=== PATIENT | male | born 1990 | race Caucasian/White ===

== ENCOUNTER 2018-04-16 16:28 | Emergency (ER) | payer SELFPAY ==
[2018-04-16] MEDS ORDERED: Azithromycin 250 MG Tab PO ONE (16:55)
[2018-04-16] MEDS ORDERED: cefTRIAXone 500 MG in Lidocaine 1% 1 ML IM ONE (16:55)
--- NOTE | 2018-04-16 17:00 | EDM.PDOC ---
ED HPI GENERAL MEDICAL PROBLEM - General Chief Complaint: Genitourinary Problem Stated Complaint: POSSIBLE STD Time Seen by Provider: 04/16/18 16:49 Source of Information: Reports: Patient History Limitations: Reports: No Limitations - History of Present Illness INITIAL COMMENTS - FREE TEXT/NARRATIVE: History of present illness: []Patient has had chlamydia in the past and has been reexpose somebody with documented chlamydia. He states he has tingling and burning in his penis after he urinates. Review of systems: As per history of present illness and below otherwise all systems reviewed and negative. Past medical history: As per history of present illness and as reviewed below otherwise noncontributory. Surgical history: As per history of present illness and as reviewed below otherwise noncontributory. Social history: No reported history of drug or alcohol abuse. Family history: As per history of present illness and as reviewed below otherwise noncontributory. Physical exam: General: Well developed, well nourished in NAD HEENT: Atraumatic, normocephalic, pupils reactive, negative for conjunctival pallor or scleral icterus, mucous membranes moist, throat clear, neck supple, nontender, trachea midline. Lungs: Clear to auscultation, breath sounds equal bilaterally, chest nontender. Heart: S1S2, regular, negative for clicks, rubs, or JVD. Abdomen: NABS, Soft, nondistended, nontender. Negative for masses or hepatosplenomegaly. Negative for costovertebral tenderness. Pelvis: Stable nontender. Genitourinary: Deferred. Rectal: Deferred. Extremities: Atraumatic, negative for cords or calf pain. Neurovascular unremarkable. Neuro: Awake, alert, oriented. Cranial nerves II through XII unremarkable. Cerebellum unremarkable. Motor and sensory unremarkable throughout. Exam nonfocal. Skin:warm and dry Diagnostics: None Therapeutics: Ceftriaxone/Zithromax given in the ED ED Course: Remarkable Impression: Suspected STD infection Prescriptions: None Plan: Follow-up with primary care Definitive disposition and diagnosis as appropriate pending reevaluation and review of above. - Related Data Allergies Allergy/AdvReac Type Severity Reaction Status Date / Time No Known Allergies Allergy Verified 04/16/18 16:50 Home Meds: Home Meds . [No Known Home Meds] 04/16/18 [History] ED ROS GENERAL - Review of Systems Review Of Systems: ROS reveals no pertinent complaints other than HPI. ED EXAM, RENAL/ - Physical Exam Exam: See Below (History of present illness) Course - Vital Signs Last Recorded V/S: Last Vital Signs Temp 97.3 F 04/16/18 16:50 Pulse 89 04/16/18 16:50 Resp 16 04/16/18 16:50 BP 166/137 H 04/16/18 16:50 Pulse Ox 99 04/16/18 16:50 - Orders/Labs/Meds Meds: Medications Discontinued Medications Generic Name Dose Route Start Last Admin Trade Name Dima PRN Reason Stop Dose Admin Azithromycin 1,000 mg 04/16/18 16:55 04/16/18 17:03 Zithromax PO 04/16/18 16:56 1,000 mg Q24H ONE Administration Ceftriaxone Sodium 500 mg/ 1 mls @ 1 mls/sec 04/16/18 16:55 04/16/18 17:04 Lidocaine HCl IM 04/16/18 16:56 1 mls/sec ONETIME ONE Administration Departure - Departure Time of Disposition: 17:08 Disposition: Home, Self-Care 01 Condition: Good Clinical Impression: STD (male) - Discharge Information *PRESCRIPTION DRUG MONITORING PROGRAM REVIEWED*: No *COPY OF PRESCRIPTION DRUG MONITORING REPORT IN PATIENT MICHELLE: No Referrals: PCP,None [Primary Care Provider] - Forms: ED Department Discharge Additional Instructions: The following information is given to patients seen in the emergency department who are being discharged to home. This information is to outline your options for follow-up care. We provide all patients seen in our emergency department with a follow-up referral. The need for follow-up, as well as the timing and circumstances, are variable depending upon the specifics of your emergency department visit. If you don't have a primary care physician on staff, we will provide you with a referral. We always advise you to contact your personal physician following an emergency department visit to inform them of the circumstance of the visit and for follow-up with them and/or the need for any referrals to a consulting specialist. The emergency department will also refer you to a specialist when appropriate. This referral assures that you have the opportunity for follow-up care with a specialist. All of these measure are taken in an effort to provide you with optimal care, which includes your follow-up. Under all circumstances we always encourage you to contact your private physician who remains a resource for coordinating your care. When calling for follow-up care, please make the office aware that this follow-up is from your recent emergency room visit. If for any reason you are refused follow-up, please contact the [facility] Emergency Department at and asked to speak to the emergency department charge nurse. [facility] [place] [id number]
== END 2018-04-16 17:30 | disposition home or self-care (01) ==
LOC: MW.ED 16:28
DX: A64 Unspecified sexually transmitted disease (principal)
CPT/HCPCS: 96372; 99283; A9270; J0696; 99282

== ENCOUNTER 2018-05-11 08:09 | Emergency (ER) | payer SELFPAY ==
--- NOTE | 2018-05-11 08:37 | EDM.PDOC ---
ED HPI GENERAL MEDICAL PROBLEM - General Chief Complaint: Abdominal Pain Stated Complaint: ABDOMINAL PAIN Time Seen by Provider: 05/11/18 08:10 Source of Information: Reports: Patient History Limitations: Reports: No Limitations - History of Present Illness INITIAL COMMENTS - FREE TEXT/NARRATIVE: History of present illness: []Patient had 4-5 days of epigastric pain that is nonradiating. He states he's been drinking more alcohol than normal denies any vomiting, diarrhea, fevers, chills or blood in his stools. Review of systems: As per history of present illness and below otherwise all systems reviewed and negative. Past medical history: As per history of present illness and as reviewed below otherwise noncontributory. Surgical history: As per history of present illness and as reviewed below otherwise noncontributory. Social history: No reported history of drug or alcohol abuse. Family history: As per history of present illness and as reviewed below otherwise noncontributory. Physical exam: General: Well developed, well nourished in NAD HEENT: Atraumatic, normocephalic, pupils reactive, negative for conjunctival pallor or scleral icterus, mucous membranes moist, throat clear, neck supple, nontender, trachea midline. Lungs: Clear to auscultation, breath sounds equal bilaterally, chest nontender. Heart: S1S2, regular, negative for clicks, rubs, or JVD. Abdomen: NABS, Soft, nondistended, nontender. Negative for masses or hepatosplenomegaly. Negative for costovertebral tenderness. Pelvis: Stable nontender. Genitourinary: Deferred. Rectal: Deferred. Extremities: Atraumatic, negative for cords or calf pain. Neurovascular unremarkable. Neuro: Awake, alert, oriented. Cranial nerves II through XII unremarkable. Cerebellum unremarkable. Motor and sensory unremarkable throughout. Exam nonfocal. Skin:warm and dry Diagnostics: CBC, chemistry, lipase, H. pylori Therapeutics: Pepcid, IV hydration ED Course: Unremarkable Impression: gastritis Prescriptions: Prilosec 2 weeks Plan: Take meds as directed, follow up with your primary care physician, return to ER if symptoms worsen or change. Definitive disposition and diagnosis as appropriate pending reevaluation and review of above. Abdomen Pain Score (Numeric/FACES): 8 - Related Data Allergies Allergy/AdvReac Type Severity Reaction Status Date / Time No Known Allergies Allergy Verified 04/16/18 16:50 Home Meds: Home Meds Albuterol Sulfate [Albuterol Sulfate Hfa] 1 puff INH ASDIRECTED 05/11/18 [ History] Past Medical History - Past Health History Medical/Surgical History: Denies Medical/Surgical History - Infectious Disease History Infectious Disease History: Reports: None Social & Family History - Family History Family Medical History: Noncontributory - Caffeine Use Caffeine Use: Reports: Coffee ED ROS GENERAL - Review of Systems Review Of Systems: ROS reveals no pertinent complaints other than HPI. ED EXAM, GI/ABD - Physical Exam Exam: See Below (See history of present illness) Course - Vital Signs Last Recorded V/S: Last Vital Signs Temp 97.4 F 05/11/18 08:28 Pulse 64 05/11/18 08:28 Resp 16 05/11/18 08:28 BP 164/84 H 05/11/18 08:28 Pulse Ox 94 L 05/11/18 08:28 - Orders/Labs/Meds Orders: Active Orders 24 hr Category Date Time Status Sodium Chloride 0.9% [Normal Saline] 1,000 ml Med 05/11/18 08:42 Active IV .Bolus Sodium Chloride 0.9% [Saline Flush] Med 05/11/18 08:42 Active 10 ml FLUSH ASDIRECTED PRN Sodium Chloride 0.9% [Saline Flush] Med 05/11/18 08:42 Active 2.5 ml FLUSH ASDIRECTED PRN Saline Lock Insert [OM.PC] Stat Oth 05/11/18 08:42 Ordered Medication Orders Sodium Chloride (Normal Saline) 1,000 mls @ 999 mls/hr IV .Bolus ONE Stop: 05/11/18 09:42 Last Admin: 05/11/18 08:55 Dose: 999 mls/hr Sodium Chloride (Saline Flush) 10 ml FLUSH ASDIRECTED PRN PRN Reason: Keep Vein Open Sodium Chloride (Saline Flush) 2.5 ml FLUSH ASDIRECTED PRN PRN Reason: Keep Vein Open Labs: Laboratory Tests 05/11/18 05/11/18 05/11/18 Range/Units 08:50 08:50 08:50 WBC 9.38 (4.0-11.0) K/uL RBC 5.23 (4.50-5.90) M/uL Hgb 14.1 (13.0-17.0) g/dL Hct 41.9 (38.0-50.0) % MCV 80.1 (80.0-98.0) fL MCH 27.0 (27.0-32.0) pg MCHC 33.7 (31.0-37.0) g/dL RDW Std Deviation 43.7 (28.0-62.0) fl RDW Coeff of Zach 15 (11.0-15.0) % Plt Count 213 (150-400) K/uL MPV 9.90 (7.40-12.00) fL Neut % (Auto) 65.7 (48.0-80.0) % Lymph % (Auto) 24.5 (16.0-40.0) % [place] % (Auto) 9.6 (0.0-15.0) % Eos % (Auto) 0.1 (0.0-7.0) % Baso % (Auto) 0.1 (0.0-1.5) % Neut # (Auto) 6.2 H (1.4-5.7) K/uL Lymph # (Auto) 2.3 (0.6-2.4) K/uL [place] # (Auto) 0.9 H (0.0-0.8) K/uL Eos # (Auto) 0.0 (0.0-0.7) K/uL Baso # (Auto) 0.0 (0.0-0.1) K/uL Nucleated RBC % 0.0 /100WBC Nucleated RBCs # 0 K/uL Sodium 138 (136-148) mmol/L Potassium 3.8 (3.5-5.1) mmol/L Chloride 100 (98-107) mmol/L Carbon Dioxide 28.1 (21.0-32.0) mmol/L BUN 12 (7.0-18.0) mg/dL Creatinine 1.1 (0.8-1.3) mg/dL Est Cr Clr Drug Dosing 115.20 mL/min Estimated GFR (MDRD) > 60.0 ml/min Glucose 110 H (74-106) mg/dL Calcium 9.1 (8.5-10.1) mg/dL Total Bilirubin 0.4 (0.2-1.0) mg/dL AST 61 H (15-37) IU/L ALT 61 (14-63) IU/L Alkaline Phosphatase 49 (46-116) U/L Total Protein 8.4 H (6.4-8.2) g/dL Albumin 4.2 (3.4-5.0) g/dL Globulin 4.2 H (2.6-4.0) g/dL Albumin/Globulin Ratio 1.0 (0.9-1.6) H. pylori IgG Antibody NEGATIVE (NEG) Meds: Medications Generic Name Dose Route Start Last Admin Trade Name Freq PRN Reason Stop Dose Admin Sodium Chloride 1,000 mls @ 999 mls/hr 05/11/18 08:42 05/11/18 08:55 Normal Saline IV 05/11/18 09:42 999 mls/hr .Bolus ONE Administration Sodium Chloride 10 ml 05/11/18 08:42 Saline Flush FLUSH ASDIRECTED PRN Keep Vein Open Sodium Chloride 2.5 ml 05/11/18 08:42 Saline Flush FLUSH ASDIRECTED PRN Keep Vein Open Discontinued Medications Generic Name Dose Route Start Last Admin Trade Name Freq PRN Reason Stop Dose Admin Famotidine 20 mg 05/11/18 08:42 05/11/18 08:55 Pepcid IVPUSH 05/11/18 08:43 20 mg ONETIME ONE Administration Ondansetron HCl 4 mg 05/11/18 08:42 05/11/18 08:55 Zofran IVPUSH 05/11/18 08:43 4 mg ONETIME ONE Administration Departure - Departure Time of Disposition: 09:42 Disposition: Home, Self-Care 01 Condition: Good Clinical Impression: Gastritis Qualifiers: Gastritis type: unspecified gastritis Chronicity: acute Gastritis bleeding: without bleeding Qualified Code(s): K29.00 - Acute gastritis without bleeding - Discharge Information *PRESCRIPTION DRUG MONITORING PROGRAM REVIEWED*: No *COPY OF PRESCRIPTION DRUG MONITORING REPORT IN PATIENT MICHELLE: No Referrals: PCP,None [Primary Care Provider] - Forms: ED Department Discharge Additional Instructions: The following information is given to patients seen in the emergency department who are being discharged to home. This information is to outline your options for follow-up care. We provide all patients seen in our emergency department with a follow-up referral. The need for follow-up, as well as the timing and circumstances, are variable depending upon the specifics of your emergency department visit. If you don't have a primary care physician on staff, we will provide you with a referral. We always advise you to contact your personal physician following an emergency department visit to inform them of the circumstance of the visit and for follow-up with them and/or the need for any referrals to a consulting specialist. The emergency department will also refer you to a specialist when appropriate. This referral assures that you have the opportunity for follow-up care with a specialist. All of these measure are taken in an effort to provide you with optimal care, which includes your follow-up. Under all circumstances we always encourage you to contact your private physician who remains a resource for coordinating your care. When calling for follow-up care, please make the office aware that this follow-up is from your recent emergency room visit. If for any reason you are refused follow-up, please contact the [facility] Emergency Department at and asked to speak to the emergency department charge nurse. \ Take Prilosec [id number] twice a day for 2 weeks, follow up with primary care return if symptoms worsen or change. [facility] [address] [place] [address] - My Orders Last 24 Hours: My Active Orders 05/11/18 08:42 Sodium Chloride 0.9% [Normal Saline] 1,000 ml IV .Bolus Sodium Chloride 0.9% [Saline Flush] 10 ml FLUSH ASDIRECTED PRN Sodium Chloride 0.9% [Saline Flush] 2.5 ml FLUSH ASDIRECTED PRN Saline Lock Insert [OM.PC] Stat - Assessment/Plan Last 24 Hours: My Active Orders 05/11/18 08:42 Sodium Chloride 0.9% [Normal Saline] 1,000 ml IV .Bolus Sodium Chloride 0.9% [Saline Flush] 10 ml FLUSH ASDIRECTED PRN Sodium Chloride 0.9% [Saline Flush] 2.5 ml FLUSH ASDIRECTED PRN Saline Lock Insert [OM.PC] Stat
[2018-05-11] MEDS ORDERED: Sodium Chloride 0.9% 2.5 ML Syringe FLUSH PRN (08:42)
[2018-05-11] MEDS ORDERED: Sodium Chloride 0.9% 1,000 ML IV ONE (08:42)
[2018-05-11] MEDS ORDERED: Sodium Chloride 0.9% 10 ML Syringe FLUSH PRN (08:42)
[2018-05-11] MEDS ORDERED: Ondansetron 4 MG/2 ML SDV IVPUSH ONE (08:42)
[2018-05-11] MEDS ORDERED: Famotidine 20 MG/2 ML SDV IVPUSH ONE (08:42)
[2018-05-11 09:31] LABS: CHLORIDE,CL 100 mmol/L (98-107); SODIUM,NA 138 mmol/L (136-148)
== END 2018-05-11 09:44 | disposition home or self-care (01) ==
LOC: MW.ED 08:09
DX: K29.00 Acute gastritis without bleeding (principal)
CPT/HCPCS: 36415; 80053; 85025; 86677; 96361; 96374; 96375; 99284; J2405; J3490; J7040; 99283

== ENCOUNTER 2020-10-21 03:49 | Emergency (ER) | payer SELFPAY ==
--- NOTE | 2020-10-21 04:03 | EDM.PDOC ---
ED HPI GENERAL MEDICAL PROBLEM - General Chief Complaint: General Stated Complaint: MEDICAL CLEARANCE Time Seen by Provider: 10/21/20 04:01 - History of Present Illness INITIAL COMMENTS - FREE TEXT/NARRATIVE: HISTORY AND PHYSICAL: History of present illness: This is a 30-year-old gentleman who was brought in today by law enforcement for medical clearance. Patient reports he was drinking alcohol tonight. Patient denies any pain or discomfort anywhere. Patient has any recent fevers, shakes, chills, nausea, vomiting, diarrhea, dysuria, frequency or urgency. Patient has any history of hypertension, diabetes, liver, kidney problems. Patient reports he does have a history of asthma in the past. Patient has any pain or discomfort anywhere. Review of systems: As per history of present illness and below otherwise all systems reviewed and negative. Past medical history: As per history of present illness and as reviewed below otherwise noncontributory. Surgical history: As per history of present illness and as reviewed below otherwise noncontributory. Social history: No reported history of drug abuse. Family history: As per history of present illness and as reviewed below otherwise noncontributory. Physical exam: This patient was seen and evaluated during the 2019 SARS-CoV-2 novel coronavirus pandemic period. Community viral transmission is ongoing at time of this encounter and the emergency department is operating under pandemic response procedures. Constitutional: Patient is oriented to person, place, and time. Appears well- developed and well-nourished. No distress. HEENT: Moist mucous membranes Head: Normocephalic and atraumatic Eyes: Right eye exhibits no discharge. Left eye exhibits no discharge. No scleral icterus Neck: Normal range of motion. No tracheal deviation present. Cardiovascular: Normal rate and regular rhythm. Pulmonary: Effort normal, no respiratory distress. Abdominal: No distention Musculoskeletal: Normal range of motion Neurologic: Alert and oriented to person, place and time. Skin: Joshua, warm and dry. Psychiatric: Normal mood and affect. Behavior is normal. Judgment and thought content normal. Nursing note and vital signs have been reviewed Diagnostics: [] Therapeutics: [] Assessment and plan: 30-year-old gentleman who presents ER today for medical clearance secondary to alcohol intoxication prior to incarceration. At this time, patient does not present with any acute emergent issues that would require any further ER or inpatient evaluation. Reassessment at the time of disposition demonstrates that the patient is in no acute distress. The patient has remained stable throughout the entire ED visit and is without objective evidence for acute process requiring urgent intervention or hospitalization. The patient is stable for discharge, counseling is provided as documented above, discussed symptomatic treatment and specific conditions for return. I have spoken with the patient/caregiver and discussed todays findings, in addition to providing specific details for the plan of care. Questions are answered and there is agreement with the plan. Definitive disposition and diagnosis as appropriate pending reevaluation and review of above. - Related Data Allergies Allergy/AdvReac Type Severity Reaction Status Date / Time No Known Allergies Allergy Verified 10/21/20 04:02 Home Meds: Home Meds . [No Known Home Meds] 10/21/20 [History] Past Medical History - Past Health History Medical/Surgical History: Denies Medical/Surgical History - Infectious Disease History Infectious Disease History: Reports: None - Past Surgical History Musculoskeletal Surgical History: Reports: Other (See Below) Other Musculoskeletal Surgeries/Procedures:: Left ankle-pins placed per patient Social & Family History - Family History Family Medical History: No Pertinent Family History - Caffeine Use Caffeine Use: Reports: Coffee ED ROS GENERAL - Review of Systems Review Of Systems: See Below ED EXAM, GENERAL - Physical Exam Exam: See Below Departure - Departure Time of Disposition: 04:03 Disposition: Home, Self-Care 01 Condition: Good Clinical Impression: Medical clearance for incarceration - Discharge Information Instructions: Medical Screening Exam Referrals: PCP,None [Primary Care Provider] - Additional Instructions: The following information is given to patients seen in the emergency department who are being discharged to home. This information is to outline your options for follow-up care. We provide all patients seen in our emergency department with a follow-up referral. The need for follow-up, as well as the timing and circumstances, are variable depending upon the specifics of your emergency department visit. If you don't have a primary care physician on staff, we will provide you with a referral. We always advise you to contact your personal physician following an emergency department visit to inform them of the circumstance of the visit and for follow-up with them and/or the need for any referrals to a consulting specialist. The emergency department will also refer you to a specialist when appropriate. This referral assures that you have the opportunity for follow-up care with a specialist. All of these measure are taken in an effort to provide you with optimal care, which includes your follow-up. Under all circumstances we always encourage you to contact your private physician who remains a resource for coordinating your care. When calling for follow-up care, please make the office aware that this follow-up is from your recent emergency room visit. If for any reason you are refused follow-up, please contact the [facility] Emergency Department at and asked to speak to the emergency department charge nurse. [facility] - Primary Care [address] [place] [address] [id number] [address] [id number]
== END 2020-10-21 04:12 | disposition home or self-care (01) ==
LOC: MW.ED 03:49
DX: Z02.89 Encounter for other administrative examinations (principal); I10 Essential (primary) hypertension; E11.9 Type 2 diabetes mellitus without complications; J45.909 Unspecified asthma, uncomplicated
CPT/HCPCS: 99283

== ENCOUNTER 2020-12-11 15:38 | Emergency (ER) | payer SELFPAY ==
[2020-12-11] MEDS ORDERED: Sodium Chloride 0.9% 2.5 ML Syringe FLUSH PRN (18:14)
[2020-12-11] MEDS ORDERED: Sodium Chloride 0.9% 10 ML Syringe FLUSH PRN (18:14)
[2020-12-11] MEDS ORDERED: Sodium Chloride 0.9% 1,000 ML IV ONE ×2 (18:16→18:41)
--- NOTE | 2020-12-11 18:17 | EDM.PDOC ---
<Sajan Mueller - Last Filed: 12/12/20 06:40> ED HPI GENERAL MEDICAL PROBLEM - General Chief Complaint: Respiratory Problem Stated Complaint: ABDOMINAL PAIN Time Seen by Provider: 12/11/20 18:04 Source of Information: Reports: Patient History Limitations: Reports: No Limitations - Related Data Allergies Allergy/AdvReac Type Severity Reaction Status Date / Time No Known Allergies Allergy Verified 10/21/20 04:02 Home Meds: Home Meds . [No Known Home Meds] 10/21/20 [History] Course - Re-Assessments/Exams Free Text/Narrative Re-Assessment/Exam: 12/11/20 19:04 This patient was signed out to me from Dr. Leon at this time. I promptly performed a detailed physical examination, my examination was performed after ED treatments were initiated by the signout provider. Patient has been under the care of the previous provider up until this point. Patient received 10 units IV insulin prior to signout. He is a ill-appearing 30-year-old male who presented feeling short of breath for 2 days, with epigastric abdominal pain. Exam demonstrated epigastric tenderness and right upper quadrant tenderness. He admits to drinking alcohol. He is tachypneic, ill-appearing, tachycardic, with Kussmaul respirations. 12/11/20 19:32 Chemistry resulted, patient started on insulin drip for DKA and severe metabolic acidosis. Order placed at 7:30pm 12/11/20 21:57 Insulin drip has yet to be started, I again reiterated to nursing to expedite insulin drip as he is critically sick. 12/11/20 22:08 Call [facility], they have no ICU capacity. Called [facility] transfer center at [facility] to expedite transfer. He will require transfer to outside facility for the need of higher level of care not available at this facility, and the need for organizational development consultant services unavailable at this facility. Any emergency conditions have been stabilized to the ability of the ED prior to the transfer. 12/11/20 23:06 Dr. Dunn consulted to assist in managing his DKA while patient is boarding in the ER. 12/12/20 00:11 Called [facility] has no ICU beds. [facility] has no ICU beds. [facility] no ICU beds. 12/12/20 00:16 I reassessed patient, he just received 2 Amps of sodium bicarb. Mentating normally. Repeat BG = 376. 12/12/20 06:39 Repeat chemistry reviewed. His anion gap is improving from 32 to 24. He feels much improved. I called [facility] again, they are still attempting to arrange this patient to be accepted but there is no capacity statewide at the ICU level. 12/12/20 06:59 Patient signed back out to Dr. Leon for disposition. Departure - Departure Disposition: DC/Tfer to [facility] 02 Condition: Critical Clinical Impression: Diabetic ketoacidosis, Metabolic acidosis, increased anion gap, Acute renal failure, Pancreatitis, Pseudohyponatremia, Diabetes mellitus, new onset - Discharge Information *PRESCRIPTION DRUG MONITORING PROGRAM REVIEWED*: Not Applicable *COPY OF PRESCRIPTION DRUG MONITORING REPORT IN PATIENT MICHELLE: Not Applicable Instructions: Acute Kidney Injury, Adult, Acute Pancreatitis, [id number], Pancreatitis Eating Plan, Diabetic Ketoacidosis, Metabolic Acidosis, Preventing Diabetic Ketoacidosis Referrals: PCP,None [Primary Care Provider] - Forms: ED Department Discharge Critical Care Note - Critical Care Note Comments: CRITCAL CARE: The high probability of sudden, clinically significant deterioration in the patient's condition required the highest level of my preparedness to intervene urgently. The services I provided to this patient were to treat and/or prevent clinically significant deterioration. Services included the following: chart data review, reviewing nursing notes and/or old charts, documentation time, organizational development consultant collaboration regarding findings and treatment options, medication orders and management, direct patient care, vital sign assessments and ordering, interpreting and reviewing diagnostic studies/lab tests. Aggregate critical care time includes only time during which I was engaged in work directly related to the patient's care, as described above, whether at the bedside or elsewhere in the Emergency Department. It did not include time spent performing other reported procedures or the services of residents, students, nurses or physician assistants. Frequent interventions and/or frequent repeat evaluations were required as well as counseling and coordination of care regarding prognosis, treatments, and discussions with patient, staff and consultants. Critical Care (excluding other procedures): 126 minutes <Iggy Leon - Last Filed: 12/12/20 16:37> ED HPI GENERAL MEDICAL PROBLEM - History of Present Illness INITIAL COMMENTS - FREE TEXT/NARRATIVE: History of present illness: [] The patient been thirstier than usual for least a few days. The girlfriend of 4 years duration says that he has been losing weight for period of weeks. The patient says he has been thirsty but he did not notice any increased urination or eating but admits he loses weight. Girlfriend said he started talking like he did not know what is going on today and he is breathing really fast. The patient has not bedside glucose that reads high. The patient's not diabetic to his knowledge and has no family history of diabetes. The patient denies drug use or significant alcohol intake. Review of systems: As per history of present illness and below otherwise all systems reviewed and negative. Past medical history: As per history of present illness and as reviewed below otherwise noncontributory. Surgical history: As per history of present illness and as reviewed below otherwise noncont ributory. Social history: No reported history of drug or alcohol abuse. Family history: As per history of present illness and as reviewed below otherwise noncontributory. Physical exam: Constitutional - well developed, well-nourished and in no acute distress HEENT - normocephalic, no evidence of trauma - external nose and mouth normal - no mass in neck and no JVD - mucosae moist EYES - full EOM, PERRL, no icterus - no evidence of inflammation, injection, or drainage Respiratory -tachypneic equal bilateral expansion, lungs equal bilateral expansion with clear lungs. Cardiovascular - Regular Rhythm with S1 and S2 appreciated and no murmur, gallop or rub. GI - abdomen soft without distension or organomegaly - normal bowel sounds - no guard or rebound Musculoskeletal no gross deformity of long bones or joints - no tenderness, swelling or edema Neurologic - Alert and oriented only to person and circumstances- CN II-XII grossly intact - motor sensory and coordination symmetrically normal Psychiatric - appropriate mood and affect with confusion Hematologic - No petechiae or purpura - mucosa appropriate color and sclera not pale - normal nail bed color and refill Integument - no rash or evidence of trauma - normal turgor Diagnostics: [] Therapeutics: [] Impression: [] Plan: [] Definitive disposition and diagnosis as appropriate pending reevaluation and review of above. Right Anterior Abdominal Pain Score (Numeric/FACES): 10 Past Medical History - Past Health History Medical/Surgical History: Denies Medical/Surgical History Respiratory History: Reports: Asthma - Infectious Disease History Infectious Disease History: Reports: None - Past Surgical History Musculoskeletal Surgical History: Reports: Other (See Below) Other Musculoskeletal Surgeries/Procedures:: Left ankle-pins placed per patient Social & Family History - Family History Family Medical History: No Pertinent Family History - Tobacco Use Tobacco Use Status *Q: Never Tobacco User - Caffeine Use Caffeine Use: Reports: Soda - Recreational Drug Use Recreational Drug Use: No ED ROS GENERAL - Review of Systems Review Of Systems: Comprehensive ROS is negative, except as noted in HPI. ED EXAM, GENERAL - Physical Exam Exam: See Below Free Text/Narrative:: My physical exam is on the HPI #1 Interpretation EKG Interpretation Comments: EKG sinus tachycardia heart rate 102 ND 159 QT 471 QRS 95 borderline repolarization abnormality borderline ST elevation borderline QT interval prolongation no prior for comparison impression no obvious acute injury Course - Vital Signs Text/Narrative:: 9:22 AM I verified patient's respiratory rate is 16 now and he feels good. He is oriented x4. He is no acute distress not vomiting. Remainder vital signs are stable. Anion gap at blood drawn for a.m. was 21.1. Plan to redraw at 10 AM and update the internal medicine doctor Dr. Dunn who is taking care of his orders. Last Recorded V/S: Last Vital Signs Temp 37.1 C 12/11/20 18:03 Pulse 83 12/12/20 16:14 Resp 21 H 12/12/20 16:14 BP 123/83 12/12/20 16:14 Pulse Ox 98 12/12/20 16:14 - Orders/Labs/Meds Orders: Active Orders 24 hr Category Date Time Status Accu Check [Blood Glucose Check, Bedside] [RC] Q1H Care 12/11/20 23:21 Active Cardiac Monitoring [RC] CONTINUOUS Care 12/11/20 23:39 Active Communication Order [RC] STAT Care 12/11/20 22:09 Active Communication Order [RC] STAT Care 12/11/20 22:09 Active Communication Order [RC] STAT Care 12/11/20 22:09 Active Diabetes Education [RC] .PRN Care 12/11/20 22:09 Active Vital Signs [RC] Q1H Care 12/11/20 23:06 Active CHLAMYDIA AND GONORRHEA BY TMA Stat Lab 12/12/20 02:15 Received CULTURE BLOOD [BC] Stat Lab 12/11/20 19:08 Received CULTURE BLOOD [BC] Stat Lab 12/11/20 19:18 Received VANCOMYCIN TROUGH [CHEM] Timed Lab 12/13/20 12:45 Ordered Dextrose 5%-0.45% NaCl [Dextrose 5%-1/2 NS] 1,000 ml Med 12/12/20 02:15 Active IV ASDIRECTED Dextrose 5%-0.45% NaCl [Dextrose 5%-1/2 NS] 1,000 ml Med 12/12/20 11:30 Active IV CONTINUOUS Dextrose 50% in Water Med 12/11/20 18:21 Active 50 ml IVPUSH ASDIRECTED PRN Glucagon,Human Recombinant [GlucaGen] Med 12/11/20 18:21 Active 1 mg IM ASDIRECTED PRN Insulin Regular in 0.9 % NACL [Myxredlin in NS 100 UNIT Med 12/12/20 13:11 Active /100 ML] 100 ml IV TITRATE Lactated Ringers [Ringers, Lactated] 1,000 ml Med 12/11/20 23:30 Active IV ASDIRECTED Ondansetron [Zofran] Med 12/11/20 23:32 Active 4 mg IVPUSH Q4H PRN Pantoprazole [ProTONIX IV] 40 mg Med 12/11/20 23:45 Active Sodium Chloride 0.9% [Normal Saline] 10 ml IV DAILY Pharmacy to Dose - Vancomycin Med 12/12/20 13:15 Active 1 dose .XX ASDIRECTED Piperacillin/Tazobactam [Piperacil-Tazobact] 3.375 gm Med 12/12/20 06:00 Active Sodium Chloride 0.9% [Normal Saline] 50 ml IV Q8H Sodium Bicarbonate [Sodium Bicarbonate 8.4%] 50 meq Med 12/12/20 16:15 Active Dextrose 5% in Water 50 ml IV ONETIME Sodium Bicarbonate [Sodium Bicarbonate 8.4%] 50 meq Med 12/12/20 16:45 Active Dextrose 5% in Water 50 ml IV ONETIME Sodium Chloride 0.9% [Saline Flush] Med 12/11/20 18:14 Active 10 ml FLUSH ASDIRECTED PRN Sodium Chloride 0.9% [Saline Flush] Med 12/11/20 18:14 Active 2.5 ml FLUSH ASDIRECTED PRN VANCOmycin 1.25 GM/250 ML 1.25 gm Med 12/12/20 13:15 Active Premix Bag 1 bag IV Q8H Blood Culture x2 Reflex Set [OM.PC] Stat Oth 12/11/20 18:43 Ordered Saline Lock Insert [OM.PC] Stat Oth 12/11/20 18:14 Ordered Medication Orders Dextrose/Water (50% Dextrose In Water 50 Ml Syringe) 50 ml IVPUSH ASDIRECTED PRN PRN Reason: Hypoglycemia Glucagon (Glucagon,Human Recombinant 1 Mg Vial) 1 mg IM ASDIRECTED PRN PRN Reason: Hypoglycemia Lactated Ringer's (Ringers, Lactated) 1,000 mls @ 200 mls/hr IV ASDIRECTED KARLIE Last Admin: 12/12/20 00:32 Dose: 200 mls/hr Documented by: CHAPO Piperacillin Sod/Tazobactam (Sod 3.375 gm/ Sodium Chloride) 50 mls @ 100 mls/hr IV Q8H KARLIE Last Admin: 12/12/20 16:00 Dose: 100 mls/hr Documented by: Infusion: 12/12/20 08:07 Dose: 100 mls/hr Documented by: Admin: 12/12/20 07:37 Dose: 100 mls/hr Documented by: OPAL Pantoprazole Sodium 40 mg/ (Sodium Chloride) 10 mls @ 300 mls/hr IV DAILY KARLIE Last Admin: 12/12/20 09:56 Dose: 300 mls/hr Documented by: Infusion: 12/12/20 00:03 Dose: 300 mls/hr Documented by: Admin: 12/12/20 00:01 Dose: 300 mls/hr Documented by: SEAGMIC Dextrose/Sodium Chloride (Dextrose 5%-1/2 Ns) 1,000 mls @ 125 mls/hr IV ASDIRECTED KARLIE Last Admin: 12/12/20 11:26 Dose: 125 mls/hr Documented by: Infusion: 12/12/20 10:09 Dose: 125 mls/hr Documented by: Admin: 12/12/20 02:09 Dose: 125 mls/hr Documented by: SEAGMIC Dextrose/Sodium Chloride (Dextrose 5%-1/2 Ns) 1,000 mls @ 125 mls/hr IV CONTINUOUS KRALIE Last Admin: 12/12/20 15:43 Dose: 125 mls/hr Documented by: OPAL Vancomycin HCl 1.25 gm/ Premix 250 mls @ 166.667 mls/hr IV Q8H KARLIE Last Admin: 12/12/20 13:51 Dose: 166.667 mls/hr Documented by: BESSIE Insulin Regular in 0.9 % NACL (Myxredlin In Ns 100 Unit/100 Ml) 100 mls @ 489.882 mls/hr IV TITRATE KARLIE; Protocol Last Admin: 12/12/20 16:21 Dose: 2 units/kg/hr, 163.294 mls/hr Documented by: OPAL Cosigned by: BESSIE Titration: 12/12/20 15:13 Dose: 2.5 units/kg/hr, 204.118 mls/hr Documented by: OPAL Cosigned by: SAL Admin: 12/12/20 13:13 Dose: 3 units/kg/hr, 244.941 mls/hr Documented by: OPAL Cosigned by: SAL Sodium Bicarbonate 50 meq/ (Dextrose/Water) 100 mls @ 200 mls/hr IV ONETIME ONE Stop: 12/12/20 16:44 Sodium Bicarbonate 50 meq/ (Dextrose/Water) 100 mls @ 200 mls/hr IV ONETIME ONE Stop: 12/12/20 17:14 Ondansetron HCl (Ondansetron 4 Mg/2 Ml Sdv) 4 mg IVPUSH Q4H PRN PRN Reason: Nausea/Vomiting Sodium Chloride (Sodium Chloride 0.9% 10 Ml Syringe) 10 ml FLUSH ASDIRECTED PRN PRN Reason: Keep Vein Open Last Admin: 12/11/20 18:34 Dose: 10 ml Documented by: JOSE Sodium Chloride (Sodium Chloride 0.9% 2.5 Ml Syringe) 2.5 ml FLUSH ASDIRECTED PRN PRN Reason: Keep Vein Open Last Admin: 12/11/20 18:34 Dose: 2.5 ml Documented by: JOSE Vancomycin HCl (Pharmacy To Dose - Vancomycin) 1 dose .XX ASDIRECTED [facility] Labs: Laboratory Tests 12/11/20 12/11/20 12/11/20 Range/Units 00:01 18:11 18:11 WBC 19.95 H (4.0-11.0) K/uL RBC 5.40 (4.50-5.90) M/uL Hgb 15.0 (13.0-17.0) g/dL Hct 44.6 (38.0-50.0) % MCV 82.6 (80.0-98.0) fL MCH 27.8 (27.0-32.0) pg MCHC 33.6 (31.0-37.0) g/dL RDW Std Deviation 42.7 (28.0-62.0) fl RDW Coeff of Zach 14 (11.0-15.0) % Plt Count 246 (150-400) K/uL MPV 13.00 H (7.40-12.00) fL Add Manual Diff YES Neutrophils % (Manual) 55 (48.0-80.0) % Band Neutrophils % 24 % Lymphocytes % (Manual) 15 L (16.0-40.0) % Monocytes % (Manual) 4 (0.0-15.0) % Metamyelocytes % 2 % Nucleated RBC % 0.0 /100WBC Absolute Seg Neuts 11.0 H (1.4-5.7) Band Neutrophils # 4.8 Lymphocytes # (Manual) 3.0 H (0.6-2.4) Monocytes # (Manual) 0.8 (0.0-0.8) Absolute Metamyelocyte 0.4 Nucleated RBCs # 0 K/uL VBG pH (7.31-7.41) VBG pCO2 (41-51) mmHG VBG pO2 mmHG VBG HCO3 (23-28) mEq/L VBG Total CO2 (24-29) mmol/L VBG Base Excess (-2.0-3.0) Sodium 123 L (136-148) mmol/L Potassium 6.2 H (3.5-5.1) mmol/L Chloride 85 L (98-107) mmol/L Carbon Dioxide 5.3 L (21.0-32.0) mmol/L BUN 18 (7.0-18.0) mg/dL Creatinine 1.8 H (0.8-1.3) mg/dL Est Cr Clr Drug Dosing 68.67 mL/min Estimated GFR (MDRD) 53.6 ml/min Glucose 661 H* (74-106) mg/dL POC Glucose (70-99) mg/dL Lactic Acid (0.4-2.0) mmol/L Calcium 9.1 (8.5-10.1) mg/dL Phosphorus (2.6-4.7) mg/dL Magnesium (1.8-2.4) mg/dL Total Bilirubin 0.8 (0.2-1.0) mg/dL AST 35 (15-37) IU/L ALT 23 (14-63) IU/L Alkaline Phosphatase 91 (46-116) U/L Total Protein 10.5 H (6.4-8.2) g/dL Albumin 4.6 (3.4-5.0) g/dL Globulin 5.9 H (2.6-4.0) g/dL Albumin/Globulin Ratio 0.8 L (0.9-1.6) Lipase 2251 H (73-393) U/L Urine Color Urine Appearance Urine pH (5.0-8.0) Ur Specific [place] (1.001-1.035) Urine Protein (NEGATIVE) mg/dL Urine Glucose (UA) (NEGATIVE) mg/dL Urine Ketones (NEGATIVE) mg/dL Urine Occult Blood (NEGATIVE) Urine Nitrite (NEGATIVE) Urine Bilirubin (NEGATIVE) Urine Urobilinogen (<2.0) EU/dL Ur Leukocyte Esterase (NEGATIVE) Urine RBC (0-2/HPF) Urine WBC (0-5/HPF) Ur Epithelial Cells (NONE-FEW) Urine Bacteria (NEGATIVE) WBC Casts (NEGATIVE) Urine Mucus (NONE-MOD) Urine Opiates Screen NEGATIVE (NEGATIVE) Ur Oxycodone Screen NEGATIVE (NEGATIVE) Urine Methadone Screen NEGATIVE (NEGATIVE) Ur Barbiturates Screen NEGATIVE (NEGATIVE) Ur Phencyclidine Scrn NEGATIVE (NEGATIVE) Ur Amphetamine Screen NEGATIVE (NEGATIVE) U Methamphetamines Scrn NEGATIVE (NEGATIVE) U Benzodiazepines Scrn NEGATIVE (NEGATIVE) U Cocaine Metab Screen NEGATIVE (NEGATIVE) U Marijuana (THC) Screen NEGATIVE (NEGATIVE) Ketones (NEG) SARS-CoV-2 RNA (MARTÍNEZ) (NEGATIVE) 12/11/20 12/11/20 12/11/20 Range/Units 18:11 18:11 18:12 WBC (4.0-11.0) K/uL RBC (4.50-5.90) M/uL Hgb (13.0-17.0) g/dL Hct (38.0-50.0) % MCV (80.0-98.0) fL MCH (27.0-32.0) pg MCHC (31.0-37.0) g/dL RDW Std Deviation (28.0-62.0) fl RDW Coeff of Zach (11.0-15.0) % Plt Count (150-400) K/uL MPV (7.40-12.00) fL Add Manual Diff Neutrophils % (Manual) (48.0-80.0) % Band Neutrophils % % Lymphocytes % (Manual) (16.0-40.0) % Monocytes % (Manual) (0.0-15.0) % Metamyelocytes % % Nucleated RBC % /100WBC Absolute Seg Neuts (1.4-5.7) Band Neutrophils # Lymphocytes # (Manual) (0.6-2.4) Monocytes # (Manual) (0.0-0.8) Absolute Metamyelocyte Nucleated RBCs # K/uL VBG pH (7.31-7.41) VBG pCO2 (41-51) mmHG VBG pO2 mmHG VBG HCO3 (23-28) mEq/L VBG Total CO2 (24-29) mmol/L VBG Base Excess (-2.0-3.0) Sodium (136-148) mmol/L Potassium (3.5-5.1) mmol/L Chloride (98-107) mmol/L Carbon Dioxide (21.0-32.0) mmol/L BUN (7.0-18.0) mg/dL Creatinine (0.8-1.3) mg/dL Est Cr Clr Drug Dosing mL/min Estimated GFR (MDRD) ml/min Glucose (74-106) mg/dL POC Glucose > 519 H* (70-99) mg/dL Lactic Acid (0.4-2.0) mmol/L Calcium (8.5-10.1) mg/dL Phosphorus 7.3 H (2.6-4.7) mg/dL Magnesium 2.3 (1.8-2.4) mg/dL Total Bilirubin (0.2-1.0) mg/dL AST (15-37) IU/L ALT (14-63) IU/L Alkaline Phosphatase (46-116) U/L Total Protein (6.4-8.2) g/dL Albumin (3.4-5.0) g/dL Globulin (2.6-4.0) g/dL Albumin/Globulin Ratio (0.9-1.6) Lipase (73-393) U/L Urine Color Urine Appearance Urine pH (5.0-8.0) Ur Specific [place] (1.001-1.035) Urine Protein (NEGATIVE) mg/dL Urine Glucose (UA) (NEGATIVE) mg/dL Urine Ketones (NEGATIVE) mg/dL Urine Occult Blood (NEGATIVE) Urine Nitrite (NEGATIVE) Urine Bilirubin (NEGATIVE) Urine Urobilinogen (<2.0) EU/dL Ur Leukocyte Esterase (NEGATIVE) Urine RBC (0-2/HPF) Urine WBC (0-5/HPF) Ur Epithelial Cells (NONE-FEW) Urine Bacteria (NEGATIVE) WBC Casts (NEGATIVE) Urine Mucus (NONE-MOD) Urine Opiates Screen (NEGATIVE) Ur Oxycodone Screen (NEGATIVE) Urine Methadone Screen (NEGATIVE) Ur Barbiturates Screen (NEGATIVE) Ur Phencyclidine Scrn (NEGATIVE) Ur Amphetamine Screen (NEGATIVE) U Methamphetamines Scrn (NEGATIVE) U Benzodiazepines Scrn (NEGATIVE) U Cocaine Metab Screen (NEGATIVE) U Marijuana (THC) Screen (NEGATIVE) Ketones MODERATE H (NEG) SARS-CoV-2 RNA (MARTÍNEZ) (NEGATIVE) 12/11/20 12/11/20 12/11/20 Range/Units 18:30 18:48 18:50 WBC (4.0-11.0) K/uL RBC (4.50-5.90) M/uL Hgb (13.0-17.0) g/dL Hct (38.0-50.0) % MCV (80.0-98.0) fL MCH (27.0-32.0) pg MCHC (31.0-37.0) g/dL RDW Std Deviation (28.0-62.0) fl RDW Coeff of Zach (11.0-15.0) % Plt Count (150-400) K/uL MPV (7.40-12.00) fL Add Manual Diff Neutrophils % (Manual) (48.0-80.0) % Band Neutrophils % % Lymphocytes % (Manual) (16.0-40.0) % Monocytes % (Manual) (0.0-15.0) % Metamyelocytes % % Nucleated RBC % /100WBC Absolute Seg Neuts (1.4-5.7) Band Neutrophils # Lymphocytes # (Manual) (0.6-2.4) Monocytes # (Manual) (0.0-0.8) Absolute Metamyelocyte Nucleated RBCs # K/uL VBG pH 6.95 L (7.31-7.41) VBG pCO2 24 L (41-51) mmHG VBG pO2 < 30 mmHG VBG HCO3 5 L (23-28) mEq/L VBG Total CO2 5 L (24-29) mmol/L VBG Base Excess -25.8 L (-2.0-3.0) Sodium (136-148) mmol/L Potassium (3.5-5.1) mmol/L Chloride (98-107) mmol/L Carbon Dioxide (21.0-32.0) mmol/L BUN (7.0-18.0) mg/dL Creatinine (0.8-1.3) mg/dL Est Cr Clr Drug Dosing mL/min Estimated GFR (MDRD) ml/min Glucose (74-106) mg/dL POC Glucose > 519 H* (70-99) mg/dL Lactic Acid (0.4-2.0) mmol/L Calcium (8.5-10.1) mg/dL Phosphorus (2.6-4.7) mg/dL Magnesium (1.8-2.4) mg/dL Total Bilirubin (0.2-1.0) mg/dL AST (15-37) IU/L ALT (14-63) IU/L Alkaline Phosphatase (46-116) U/L Total Protein (6.4-8.2) g/dL Albumin (3.4-5.0) g/dL Globulin (2.6-4.0) g/dL Albumin/Globulin Ratio (0.9-1.6) Lipase (73-393) U/L Urine Color Urine Appearance Urine pH (5.0-8.0) Ur Specific [place] (1.001-1.035) Urine Protein (NEGATIVE) mg/dL Urine Glucose (UA) (NEGATIVE) mg/dL Urine Ketones (NEGATIVE) mg/dL Urine Occult Blood (NEGATIVE) Urine Nitrite (NEGATIVE) Urine Bilirubin (NEGATIVE) Urine Urobilinogen (<2.0) EU/dL Ur Leukocyte Esterase (NEGATIVE) Urine RBC (0-2/HPF) Urine WBC (0-5/HPF) Ur Epithelial Cells (NONE-FEW) Urine Bacteria (NEGATIVE) WBC Casts (NEGATIVE) Urine Mucus (NONE-MOD) Urine Opiates Screen (NEGATIVE) Ur Oxycodone Screen (NEGATIVE) Urine Methadone Screen (NEGATIVE) Ur Barbiturates Screen (NEGATIVE) Ur Phencyclidine Scrn (NEGATIVE) Ur Amphetamine Screen (NEGATIVE) U Methamphetamines Scrn (NEGATIVE) U Benzodiazepines Scrn (NEGATIVE) U Cocaine Metab Screen (NEGATIVE) U Marijuana (THC) Screen (NEGATIVE) Ketones (NEG) SARS-CoV-2 RNA (MARTÍNEZ) NEGATIVE (NEGATIVE) 12/11/20 12/11/20 12/11/20 Range/Units 19:08 19:14 19:36 WBC (4.0-11.0) K/uL RBC (4.50-5.90) M/uL Hgb (13.0-17.0) g/dL Hct (38.0-50.0) % MCV (80.0-98.0) fL MCH (27.0-32.0) pg MCHC (31.0-37.0) g/dL RDW Std Deviation (28.0-62.0) fl RDW Coeff of Zach (11.0-15.0) % Plt Count (150-400) K/uL MPV (7.40-12.00) fL Add Manual Diff Neutrophils % (Manual) (48.0-80.0) % Band Neutrophils % % Lymphocytes % (Manual) (16.0-40.0) % Monocytes % (Manual) (0.0-15.0) % Metamyelocytes % % Nucleated RBC % /100WBC Absolute Seg Neuts (1.4-5.7) Band Neutrophils # Lymphocytes # (Manual) (0.6-2.4) Monocytes # (Manual) (0.0-0.8) Absolute Metamyelocyte Nucleated RBCs # K/uL VBG pH (7.31-7.41) VBG pCO2 (41-51) mmHG VBG pO2 mmHG VBG HCO3 (23-28) mEq/L VBG Total CO2 (24-29) mmol/L VBG Base Excess (-2.0-3.0) Sodium (136-148) mmol/L Potassium (3.5-5.1) mmol/L Chloride (98-107) mmol/L Carbon Dioxide (21.0-32.0) mmol/L BUN (7.0-18.0) mg/dL Creatinine (0.8-1.3) mg/dL Est Cr Clr Drug Dosing mL/min Estimated GFR (MDRD) ml/min Glucose (74-106) mg/dL POC Glucose > 519 H* > 519 H* (70-99) mg/dL Lactic Acid 2.6 H* (0.4-2.0) mmol/L Calcium (8.5-10.1) mg/dL Phosphorus (2.6-4.7) mg/dL Magnesium (1.8-2.4) mg/dL Total Bilirubin (0.2-1.0) mg/dL AST (15-37) IU/L ALT (14-63) IU/L Alkaline Phosphatase (46-116) U/L Total Protein (6.4-8.2) g/dL Albumin (3.4-5.0) g/dL Globulin (2.6-4.0) g/dL Albumin/Globulin Ratio (0.9-1.6) Lipase (73-393) U/L Urine Color Urine Appearance Urine pH (5.0-8.0) Ur Specific [place] (1.001-1.035) Urine Protein (NEGATIVE) mg/dL Urine Glucose (UA) (NEGATIVE) mg/dL Urine Ketones (NEGATIVE) mg/dL Urine Occult Blood (NEGATIVE) Urine Nitrite (NEGATIVE) Urine Bilirubin (NEGATIVE) Urine Urobilinogen (<2.0) EU/dL Ur Leukocyte Esterase (NEGATIVE) Urine RBC (0-2/HPF) Urine WBC (0-5/HPF) Ur Epithelial Cells (NONE-FEW) Urine Bacteria (NEGATIVE) WBC Casts (NEGATIVE) Urine Mucus (NONE-MOD) Urine Opiates Screen (NEGATIVE) Ur Oxycodone Screen (NEGATIVE) Urine Methadone Screen (NEGATIVE) Ur Barbiturates Screen (NEGATIVE) Ur Phencyclidine Scrn (NEGATIVE) Ur Amphetamine Screen (NEGATIVE) U Methamphetamines Scrn (NEGATIVE) U Benzodiazepines Scrn (NEGATIVE) U Cocaine Metab Screen (NEGATIVE) U Marijuana (THC) Screen (NEGATIVE) Ketones (NEG) SARS-CoV-2 RNA (MARTÍNEZ) (NEGATIVE) 10/09/21 10/09/21 10/09/21 Range/Units 20:43 21:27 22:24 WBC (4.0-11.0) K/uL RBC (4.50-5.90) M/uL Hgb (13.0-17.0) g/dL Hct (38.0-50.0) % MCV (80.0-98.0) fL MCH (27.0-32.0) pg MCHC (31.0-37.0) g/dL RDW Std Deviation (28.0-62.0) fl RDW Coeff of Zach (11.0-15.0) % Plt Count (150-400) K/uL MPV (7.40-12.00) fL Add Manual Diff Neutrophils % (Manual) (48.0-80.0) % Band Neutrophils % % Lymphocytes % (Manual) (16.0-40.0) % Monocytes % (Manual) (0.0-15.0) % Metamyelocytes % % Nucleated RBC % /100WBC Absolute Seg Neuts (1.4-5.7) Band Neutrophils # Lymphocytes # (Manual) (0.6-2.4) Monocytes # (Manual) (0.0-0.8) Absolute Metamyelocyte Nucleated RBCs # K/uL VBG pH (7.31-7.41) VBG pCO2 (41-51) mmHG VBG pO2 mmHG VBG HCO3 (23-28) mEq/L VBG Total CO2 (24-29) mmol/L VBG Base Excess (-2.0-3.0) Sodium (136-148) mmol/L Potassium 6.2 H (3.5-5.1) mmol/L Chloride (98-107) mmol/L Carbon Dioxide (21.0-32.0) mmol/L BUN (7.0-18.0) mg/dL Creatinine (0.8-1.3) mg/dL Est Cr Clr Drug Dosing mL/min Estimated GFR (MDRD) ml/min Glucose 519 H* (74-106) mg/dL POC Glucose > 519 H* (70-99) mg/dL Lactic Acid (0.4-2.0) mmol/L Calcium (8.5-10.1) mg/dL Phosphorus (2.6-4.7) mg/dL Magnesium (1.8-2.4) mg/dL Total Bilirubin (0.2-1.0) mg/dL AST (15-37) IU/L ALT (14-63) IU/L Alkaline Phosphatase (46-116) U/L Total Protein (6.4-8.2) g/dL Albumin (3.4-5.0) g/dL Globulin (2.6-4.0) g/dL Albumin/Globulin Ratio (0.9-1.6) Lipase (73-393) U/L Urine Color YELLOW Urine Appearance CLEAR Urine pH 5.5 (5.0-8.0) Ur Specific [place] >= 1.030 (1.001-1.035) Urine Protein 30 H (NEGATIVE) mg/dL Urine Glucose (UA) >=1000 (NEGATIVE) mg/dL Urine Ketones >=80 (NEGATIVE) mg/dL Urine Occult Blood SMALL H (NEGATIVE) Urine Nitrite NEGATIVE (NEGATIVE) Urine Bilirubin NEGATIVE (NEGATIVE) Urine Urobilinogen 0.2 (<2.0) EU/dL Ur Leukocyte Esterase NEGATIVE (NEGATIVE) Urine RBC 0-3 (0-2/HPF) Urine WBC 0-2 (0-5/HPF) Ur Epithelial Cells OCCASIONAL (NONE-FEW) Urine Bacteria FEW (NEGATIVE) WBC Casts L (NEGATIVE) Urine Mucus LIGHT (NONE-MOD) Urine Opiates Screen (NEGATIVE) Ur Oxycodone Screen (NEGATIVE) Urine Methadone Screen (NEGATIVE) Ur Barbiturates Screen (NEGATIVE) Ur Phencyclidine Scrn (NEGATIVE) Ur Amphetamine Screen (NEGATIVE) U Methamphetamines Scrn (NEGATIVE) U Benzodiazepines Scrn (NEGATIVE) U Cocaine Metab Screen (NEGATIVE) U Marijuana (THC) Screen (NEGATIVE) Ketones (NEG) SARS-CoV-2 RNA (MARTÍNEZ) (NEGATIVE) 12/11/20 12/11/20 12/12/20 Range/Units 23:11 23:28 00:14 WBC (4.0-11.0) K/uL RBC (4.50-5.90) M/uL Hgb (13.0-17.0) g/dL Hct (38.0-50.0) % MCV (80.0-98.0) fL MCH (27.0-32.0) pg MCHC (31.0-37.0) g/dL RDW Std Deviation (28.0-62.0) fl RDW Coeff of Zach (11.0-15.0) % Plt Count (150-400) K/uL MPV (7.40-12.00) fL Add Manual Diff Neutrophils % (Manual) (48.0-80.0) % Band Neutrophils % % Lymphocytes % (Manual) (16.0-40.0) % Monocytes % (Manual) (0.0-15.0) % Metamyelocytes % % Nucleated RBC % /100WBC Absolute Seg Neuts (1.4-5.7) Band Neutrophils # Lymphocytes # (Manual) (0.6-2.4) Monocytes # (Manual) (0.0-0.8) Absolute Metamyelocyte Nucleated RBCs # K/uL VBG pH (7.31-7.41) VBG pCO2 (41-51) mmHG VBG pO2 mmHG VBG HCO3 (23-28) mEq/L VBG Total CO2 (24-29) mmol/L VBG Base Excess (-2.0-3.0) Sodium 125 L (136-148) mmol/L Potassium 6.5 H (3.5-5.1) mmol/L Chloride 88 L (98-107) mmol/L Carbon Dioxide 6.3 L (21.0-32.0) mmol/L BUN 17 (7.0-18.0) mg/dL Creatinine 1.3 (0.8-1.3) mg/dL Est Cr Clr Drug Dosing 95.08 mL/min Estimated GFR (MDRD) > 60.0 ml/min Glucose 499 H (74-106) mg/dL POC Glucose 439 H* 376 H (70-99) mg/dL Lactic Acid (0.4-2.0) mmol/L Calcium 8.6 (8.5-10.1) mg/dL Phosphorus (2.6-4.7) mg/dL Magnesium (1.8-2.4) mg/dL Total Bilirubin (0.2-1.0) mg/dL AST (15-37) IU/L ALT (14-63) IU/L Alkaline Phosphatase (46-116) U/L Total Protein (6.4-8.2) g/dL Albumin (3.4-5.0) g/dL Globulin (2.6-4.0) g/dL Albumin/Globulin Ratio (0.9-1.6) Lipase (73-393) U/L Urine Color Urine Appearance Urine pH (5.0-8.0) Ur Specific [place] (1.001-1.035) Urine Protein (NEGATIVE) mg/dL Urine Glucose (UA) (NEGATIVE) mg/dL Urine Ketones (NEGATIVE) mg/dL Urine Occult Blood (NEGATIVE) Urine Nitrite (NEGATIVE) Urine Bilirubin (NEGATIVE) Urine Urobilinogen (<2.0) EU/dL Ur Leukocyte Esterase (NEGATIVE) Urine RBC (0-2/HPF) Urine WBC (0-5/HPF) Ur Epithelial Cells (NONE-FEW) Urine Bacteria (NEGATIVE) WBC Casts (NEGATIVE) Urine Mucus (NONE-MOD) Urine Opiates Screen (NEGATIVE) Ur Oxycodone Screen (NEGATIVE) Urine Methadone Screen (NEGATIVE) Ur Barbiturates Screen (NEGATIVE) Ur Phencyclidine Scrn (NEGATIVE) Ur Amphetamine Screen (NEGATIVE) U Methamphetamines Scrn (NEGATIVE) U Benzodiazepines Scrn (NEGATIVE) U Cocaine Metab Screen (NEGATIVE) U Marijuana (THC) Screen (NEGATIVE) Ketones (NEG) SARS-CoV-2 RNA (MARTÍNEZ) (NEGATIVE) 12/12/20 12/12/20 12/12/20 Range/Units 00:40 01:10 01:40 WBC (4.0-11.0) K/uL RBC (4.50-5.90) M/uL Hgb (13.0-17.0) g/dL Hct (38.0-50.0) % MCV (80.0-98.0) fL MCH (27.0-32.0) pg MCHC (31.0-37.0) g/dL RDW Std Deviation (28.0-62.0) fl RDW Coeff of Zach (11.0-15.0) % Plt Count (150-400) K/uL MPV (7.40-12.00) fL Add Manual Diff Neutrophils % (Manual) (48.0-80.0) % Band Neutrophils % % Lymphocytes % (Manual) (16.0-40.0) % Monocytes % (Manual) (0.0-15.0) % Metamyelocytes % % Nucleated RBC % /100WBC Absolute Seg Neuts (1.4-5.7) Band Neutrophils # Lymphocytes # (Manual) (0.6-2.4) Monocytes # (Manual) (0.0-0.8) Absolute Metamyelocyte Nucleated RBCs # K/uL VBG pH 7.11 L (7.31-7.41) VBG pCO2 26 L (41-51) mmHG VBG pO2 < 30 mmHG VBG HCO3 8 L (23-28) mEq/L VBG Total CO2 8 L (24-29) mmol/L VBG Base Excess -19.9 L (-2.0-3.0) Sodium (136-148) mmol/L Potassium (3.5-5.1) mmol/L Chloride (98-107) mmol/L Carbon Dioxide (21.0-32.0) mmol/L BUN (7.0-18.0) mg/dL Creatinine (0.8-1.3) mg/dL Est Cr Clr Drug Dosing mL/min Estimated GFR (MDRD) ml/min Glucose (74-106) mg/dL POC Glucose 347 H (70-99) mg/dL Lactic Acid 1.8 (0.4-2.0) mmol/L Calcium (8.5-10.1) mg/dL Phosphorus (2.6-4.7) mg/dL Magnesium (1.8-2.4) mg/dL Total Bilirubin (0.2-1.0) mg/dL AST (15-37) IU/L ALT (14-63) IU/L Alkaline Phosphatase (46-116) U/L Total Protein (6.4-8.2) g/dL Albumin (3.4-5.0) g/dL Globulin (2.6-4.0) g/dL Albumin/Globulin Ratio (0.9-1.6) Lipase (73-393) U/L Urine Color Urine Appearance Urine pH (5.0-8.0) Ur Specific [place] (1.001-1.035) Urine Protein (NEGATIVE) mg/dL Urine Glucose (UA) (NEGATIVE) mg/dL Urine Ketones (NEGATIVE) mg/dL Urine Occult Blood (NEGATIVE) Urine Nitrite (NEGATIVE) Urine Bilirubin (NEGATIVE) Urine Urobilinogen (<2.0) EU/dL Ur Leukocyte Esterase (NEGATIVE) Urine RBC (0-2/HPF) Urine WBC (0-5/HPF) Ur Epithelial Cells (NONE-FEW) Urine Bacteria (NEGATIVE) WBC Casts (NEGATIVE) Urine Mucus (NONE-MOD) Urine Opiates Screen (NEGATIVE) Ur Oxycodone Screen (NEGATIVE) Urine Methadone Screen (NEGATIVE) Ur Barbiturates Screen (NEGATIVE) Ur Phencyclidine Scrn (NEGATIVE) Ur Amphetamine Screen (NEGATIVE) U Methamphetamines Scrn (NEGATIVE) U Benzodiazepines Scrn (NEGATIVE) U Cocaine Metab Screen (NEGATIVE) U Marijuana (THC) Screen (NEGATIVE) Ketones (NEG) SARS-CoV-2 RNA (MARTÍNEZ) (NEGATIVE) 12/12/20 12/12/20 12/12/20 Range/Units 01:58 02:55 03:55 WBC (4.0-11.0) K/uL RBC (4.50-5.90) M/uL Hgb (13.0-17.0) g/dL Hct (38.0-50.0) % MCV (80.0-98.0) fL MCH (27.0-32.0) pg MCHC (31.0-37.0) g/dL RDW Std Deviation (28.0-62.0) fl RDW Coeff of Zach (11.0-15.0) % Plt Count (150-400) K/uL MPV (7.40-12.00) fL Add Manual Diff Neutrophils % (Manual) (48.0-80.0) % Band Neutrophils % % Lymphocytes % (Manual) (16.0-40.0) % Monocytes % (Manual) (0.0-15.0) % Metamyelocytes % % Nucleated RBC % /100WBC Absolute Seg Neuts (1.4-5.7) Band Neutrophils # Lymphocytes # (Manual) (0.6-2.4) Monocytes # (Manual) (0.0-0.8) Absolute Metamyelocyte Nucleated RBCs # K/uL VBG pH (7.31-7.41) VBG pCO2 (41-51) mmHG VBG pO2 mmHG VBG HCO3 (23-28) mEq/L VBG Total CO2 (24-29) mmol/L VBG Base Excess (-2.0-3.0) Sodium (136-148) mmol/L Potassium (3.5-5.1) mmol/L Chloride (98-107) mmol/L Carbon Dioxide (21.0-32.0) mmol/L BUN (7.0-18.0) mg/dL Creatinine (0.8-1.3) mg/dL Est Cr Clr Drug Dosing mL/min Estimated GFR (MDRD) ml/min Glucose (74-106) mg/dL POC Glucose 254 H 214 H 193 H (70-99) mg/dL Lactic Acid (0.4-2.0) mmol/L Calcium (8.5-10.1) mg/dL Phosphorus (2.6-4.7) mg/dL Magnesium (1.8-2.4) mg/dL Total Bilirubin (0.2-1.0) mg/dL AST (15-37) IU/L ALT (14-63) IU/L Alkaline Phosphatase (46-116) U/L Total Protein (6.4-8.2) g/dL Albumin (3.4-5.0) g/dL Globulin (2.6-4.0) g/dL Albumin/Globulin Ratio (0.9-1.6) Lipase (73-393) U/L Urine Color Urine Appearance Urine pH (5.0-8.0) Ur Specific [place] (1.001-1.035) Urine Protein (NEGATIVE) mg/dL Urine Glucose (UA) (NEGATIVE) mg/dL Urine Ketones (NEGATIVE) mg/dL Urine Occult Blood (NEGATIVE) Urine Nitrite (NEGATIVE) Urine Bilirubin (NEGATIVE) Urine Urobilinogen (<2.0) EU/dL Ur Leukocyte Esterase (NEGATIVE) Urine RBC (0-2/HPF) Urine WBC (0-5/HPF) Ur Epithelial Cells (NONE-FEW) Urine Bacteria (NEGATIVE) WBC Casts (NEGATIVE) Urine Mucus (NONE-MOD) Urine Opiates Screen (NEGATIVE) Ur Oxycodone Screen (NEGATIVE) Urine Methadone Screen (NEGATIVE) Ur Barbiturates Screen (NEGATIVE) Ur Phencyclidine Scrn (NEGATIVE) Ur Amphetamine Screen (NEGATIVE) U Methamphetamines Scrn (NEGATIVE) U Benzodiazepines Scrn (NEGATIVE) U Cocaine Metab Screen (NEGATIVE) U Marijuana (THC) Screen (NEGATIVE) Ketones (NEG) SARS-CoV-2 RNA (MARTÍNEZ) (NEGATIVE) 12/12/20 12/12/20 12/12/20 Range/Units 04:00 04:00 04:56 WBC (4.0-11.0) K/uL RBC (4.50-5.90) M/uL Hgb (13.0-17.0) g/dL Hct (38.0-50.0) % MCV (80.0-98.0) fL MCH (27.0-32.0) pg MCHC (31.0-37.0) g/dL RDW Std Deviation (28.0-62.0) fl RDW Coeff of Zach (11.0-15.0) % Plt Count (150-400) K/uL MPV (7.40-12.00) fL Add Manual Diff Neutrophils % (Manual) (48.0-80.0) % Band Neutrophils % % Lymphocytes % (Manual) (16.0-40.0) % Monocytes % (Manual) (0.0-15.0) % Metamyelocytes % % Nucleated RBC % /100WBC Absolute Seg Neuts (1.4-5.7) Band Neutrophils # Lymphocytes # (Manual) (0.6-2.4) Monocytes # (Manual) (0.0-0.8) Absolute Metamyelocyte Nucleated RBCs # K/uL VBG pH (7.31-7.41) VBG pCO2 (41-51) mmHG VBG pO2 mmHG VBG HCO3 (23-28) mEq/L VBG Total CO2 (24-29) mmol/L VBG Base Excess (-2.0-3.0) Sodium 130 L (136-148) mmol/L Potassium 5.0 (3.5-5.1) mmol/L Chloride 94 L (98-107) mmol/L Carbon Dioxide 11.7 L (21.0-32.0) mmol/L BUN 14 (7.0-18.0) mg/dL Creatinine 1.2 (0.8-1.3) mg/dL Est Cr Clr Drug Dosing 103.00 mL/min Estimated GFR (MDRD) > 60.0 ml/min Glucose 218 H (74-106) mg/dL POC Glucose 208 H (70-99) mg/dL Lactic Acid (0.4-2.0) mmol/L Calcium 8.5 (8.5-10.1) mg/dL Phosphorus 2.7 (2.6-4.7) mg/dL Magnesium 1.9 (1.8-2.4) mg/dL Total Bilirubin (0.2-1.0) mg/dL AST (15-37) IU/L ALT (14-63) IU/L Alkaline Phosphatase (46-116) U/L Total Protein (6.4-8.2) g/dL Albumin (3.4-5.0) g/dL Globulin (2.6-4.0) g/dL Albumin/Globulin Ratio (0.9-1.6) Lipase (73-393) U/L Urine Color Urine Appearance Urine pH (5.0-8.0) Ur Specific [place] (1.001-1.035) Urine Protein (NEGATIVE) mg/dL Urine Glucose (UA) (NEGATIVE) mg/dL Urine Ketones (NEGATIVE) mg/dL Urine Occult Blood (NEGATIVE) Urine Nitrite (NEGATIVE) Urine Bilirubin (NEGATIVE) Urine Urobilinogen (<2.0) EU/dL Ur Leukocyte Esterase (NEGATIVE) Urine RBC (0-2/HPF) Urine WBC (0-5/HPF) Ur Epithelial Cells (NONE-FEW) Urine Bacteria (NEGATIVE) WBC Casts (NEGATIVE) Urine Mucus (NONE-MOD) Urine Opiates Screen (NEGATIVE) Ur Oxycodone Screen (NEGATIVE) Urine Methadone Screen (NEGATIVE) Ur Barbiturates Screen (NEGATIVE) Ur Phencyclidine Scrn (NEGATIVE) Ur Amphetamine Screen (NEGATIVE) U Methamphetamines Scrn (NEGATIVE) U Benzodiazepines Scrn (NEGATIVE) U Cocaine Metab Screen (NEGATIVE) U Marijuana (THC) Screen (NEGATIVE) Ketones (NEG) SARS-CoV-2 RNA (MARTÍNEZ) (NEGATIVE) 12/12/20 12/12/20 12/12/20 Range/Units 05:51 06:52 07:23 WBC (4.0-11.0) K/uL RBC (4.50-5.90) M/uL Hgb (13.0-17.0) g/dL Hct (38.0-50.0) % MCV (80.0-98.0) fL MCH (27.0-32.0) pg MCHC (31.0-37.0) g/dL RDW Std Deviation (28.0-62.0) fl RDW Coeff of Zach (11.0-15.0) % Plt Count (150-400) K/uL MPV (7.40-12.00) fL Add Manual Diff Neutrophils % (Manual) (48.0-80.0) % Band Neutrophils % % Lymphocytes % (Manual) (16.0-40.0) % Monocytes % (Manual) (0.0-15.0) % Metamyelocytes % % Nucleated RBC % /100WBC Absolute Seg Neuts (1.4-5.7) Band Neutrophils # Lymphocytes # (Manual) (0.6-2.4) Monocytes # (Manual) (0.0-0.8) Absolute Metamyelocyte Nucleated RBCs # K/uL VBG pH (7.31-7.41) VBG pCO2 (41-51) mmHG VBG pO2 mmHG VBG HCO3 (23-28) mEq/L VBG Total CO2 (24-29) mmol/L VBG Base Excess (-2.0-3.0) Sodium 128 L (136-148) mmol/L Potassium 5.0 (3.5-5.1) mmol/L Chloride 94 L (98-107) mmol/L Carbon Dioxide 12.9 L (21.0-32.0) mmol/L BUN 13 (7.0-18.0) mg/dL Creatinine 1.0 (0.8-1.3) mg/dL Est Cr Clr Drug Dosing 123.60 mL/min Estimated GFR (MDRD) > 60.0 ml/min Glucose 273 H (74-106) mg/dL POC Glucose 201 H 242 H (70-99) mg/dL Lactic Acid (0.4-2.0) mmol/L Calcium 8.4 L (8.5-10.1) mg/dL Phosphorus (2.6-4.7) mg/dL Magnesium (1.8-2.4) mg/dL Total Bilirubin (0.2-1.0) mg/dL AST (15-37) IU/L ALT (14-63) IU/L Alkaline Phosphatase (46-116) U/L Total Protein (6.4-8.2) g/dL Albumin (3.4-5.0) g/dL Globulin (2.6-4.0) g/dL Albumin/Globulin Ratio (0.9-1.6) Lipase (73-393) U/L Urine Color Urine Appearance Urine pH (5.0-8.0) Ur Specific [place] (1.001-1.035) Urine Protein (NEGATIVE) mg/dL Urine Glucose (UA) (NEGATIVE) mg/dL Urine Ketones (NEGATIVE) mg/dL Urine Occult Blood (NEGATIVE) Urine Nitrite (NEGATIVE) Urine Bilirubin (NEGATIVE) Urine Urobilinogen (<2.0) EU/dL Ur Leukocyte Esterase (NEGATIVE) Urine RBC (0-2/HPF) Urine WBC (0-5/HPF) Ur Epithelial Cells (NONE-FEW) Urine Bacteria (NEGATIVE) WBC Casts (NEGATIVE) Urine Mucus (NONE-MOD) Urine Opiates Screen (NEGATIVE) Ur Oxycodone Screen (NEGATIVE) Urine Methadone Screen (NEGATIVE) Ur Barbiturates Screen (NEGATIVE) Ur Phencyclidine Scrn (NEGATIVE) Ur Amphetamine Screen (NEGATIVE) U Methamphetamines Scrn (NEGATIVE) U Benzodiazepines Scrn (NEGATIVE) U Cocaine Metab Screen (NEGATIVE) U Marijuana (THC) Screen (NEGATIVE) Ketones (NEG) SARS-CoV-2 RNA (MARTÍNEZ) (NEGATIVE) 12/12/20 12/12/20 12/12/20 Range/Units 07:23 08:03 08:59 WBC 14.10 H (4.0-11.0) K/uL RBC 4.74 (4.50-5.90) M/uL Hgb 13.2 (13.0-17.0) g/dL Hct 37.0 L (38.0-50.0) % MCV 78.1 L (80.0-98.0) fL MCH 27.8 (27.0-32.0) pg MCHC 35.7 (31.0-37.0) g/dL RDW Std Deviation 39.8 (28.0-62.0) fl RDW Coeff of Zach 14 (11.0-15.0) % Plt Count 237 (150-400) K/uL MPV 12.90 H (7.40-12.00) fL Add Manual Diff YES Neutrophils % (Manual) 77 (48.0-80.0) % Band Neutrophils % 5 % Lymphocytes % (Manual) 9 L (16.0-40.0) % Monocytes % (Manual) 9 (0.0-15.0) % Metamyelocytes % % Nucleated RBC % 1.6 /100WBC Absolute Seg Neuts 10.9 H (1.4-5.7) Band Neutrophils # 0.7 Lymphocytes # (Manual) 1.3 (0.6-2.4) Monocytes # (Manual) 1.3 H (0.0-0.8) Absolute Metamyelocyte Nucleated RBCs # 0 K/uL VBG pH (7.31-7.41) VBG pCO2 (41-51) mmHG VBG pO2 mmHG VBG HCO3 (23-28) mEq/L VBG Total CO2 (24-29) mmol/L VBG Base Excess (-2.0-3.0) Sodium (136-148) mmol/L Potassium (3.5-5.1) mmol/L Chloride (98-107) mmol/L Carbon Dioxide (21.0-32.0) mmol/L BUN (7.0-18.0) mg/dL Creatinine (0.8-1.3) mg/dL Est Cr Clr Drug Dosing mL/min Estimated GFR (MDRD) ml/min Glucose (74-106) mg/dL POC Glucose 251 H 250 H (70-99) mg/dL Lactic Acid (0.4-2.0) mmol/L Calcium (8.5-10.1) mg/dL Phosphorus (2.6-4.7) mg/dL Magnesium (1.8-2.4) mg/dL Total Bilirubin (0.2-1.0) mg/dL AST (15-37) IU/L ALT (14-63) IU/L Alkaline Phosphatase (46-116) U/L Total Protein (6.4-8.2) g/dL Albumin (3.4-5.0) g/dL Globulin (2.6-4.0) g/dL Albumin/Globulin Ratio (0.9-1.6) Lipase (73-393) U/L Urine Color Urine Appearance Urine pH (5.0-8.0) Ur Specific [place] (1.001-1.035) Urine Protein (NEGATIVE) mg/dL Urine Glucose (UA) (NEGATIVE) mg/dL Urine Ketones (NEGATIVE) mg/dL Urine Occult Blood (NEGATIVE) Urine Nitrite (NEGATIVE) Urine Bilirubin (NEGATIVE) Urine Urobilinogen (<2.0) EU/dL Ur Leukocyte Esterase (NEGATIVE) Urine RBC (0-2/HPF) Urine WBC (0-5/HPF) Ur Epithelial Cells (NONE-FEW) Urine Bacteria (NEGATIVE) WBC Casts (NEGATIVE) Urine Mucus (NONE-MOD) Urine Opiates Screen (NEGATIVE) Ur Oxycodone Screen (NEGATIVE) Urine Methadone Screen (NEGATIVE) Ur Barbiturates Screen (NEGATIVE) Ur Phencyclidine Scrn (NEGATIVE) Ur Amphetamine Screen (NEGATIVE) U Methamphetamines Scrn (NEGATIVE) U Benzodiazepines Scrn (NEGATIVE) U Cocaine Metab Screen (NEGATIVE) U Marijuana (THC) Screen (NEGATIVE) Ketones (NEG) SARS-CoV-2 RNA (MARTÍNEZ) (NEGATIVE) 12/12/20 12/12/20 12/12/20 Range/Units 10:02 10:26 11:10 WBC (4.0-11.0) K/uL RBC (4.50-5.90) M/uL Hgb (13.0-17.0) g/dL Hct (38.0-50.0) % MCV (80.0-98.0) fL MCH (27.0-32.0) pg MCHC (31.0-37.0) g/dL RDW Std Deviation (28.0-62.0) fl RDW Coeff of Zach (11.0-15.0) % Plt Count (150-400) K/uL MPV (7.40-12.00) fL Add Manual Diff Neutrophils % (Manual) (48.0-80.0) % Band Neutrophils % % Lymphocytes % (Manual) (16.0-40.0) % Monocytes % (Manual) (0.0-15.0) % Metamyelocytes % % Nucleated RBC % /100WBC Absolute Seg Neuts (1.4-5.7) Band Neutrophils # Lymphocytes # (Manual) (0.6-2.4) Monocytes # (Manual) (0.0-0.8) Absolute Metamyelocyte Nucleated RBCs # K/uL VBG pH (7.31-7.41) VBG pCO2 (41-51) mmHG VBG pO2 mmHG VBG HCO3 (23-28) mEq/L VBG Total CO2 (24-29) mmol/L VBG Base Excess (-2.0-3.0) Sodium 129 L (136-148) mmol/L Potassium 4.7 (3.5-5.1) mmol/L Chloride 95 L (98-107) mmol/L Carbon Dioxide 14.5 L (21.0-32.0) mmol/L BUN 14 (7.0-18.0) mg/dL Creatinine 1.0 (0.8-1.3) mg/dL Est Cr Clr Drug Dosing 123.60 mL/min Estimated GFR (MDRD) > 60.0 ml/min Glucose 256 H (74-106) mg/dL POC Glucose 238 H 218 H (70-99) mg/dL Lactic Acid (0.4-2.0) mmol/L Calcium 8.8 (8.5-10.1) mg/dL Phosphorus (2.6-4.7) mg/dL Magnesium (1.8-2.4) mg/dL Total Bilirubin (0.2-1.0) mg/dL AST (15-37) IU/L ALT (14-63) IU/L Alkaline Phosphatase (46-116) U/L Total Protein (6.4-8.2) g/dL Albumin (3.4-5.0) g/dL Globulin (2.6-4.0) g/dL Albumin/Globulin Ratio (0.9-1.6) Lipase (73-393) U/L Urine Color Urine Appearance Urine pH (5.0-8.0) Ur Specific [place] (1.001-1.035) Urine Protein (NEGATIVE) mg/dL Urine Glucose (UA) (NEGATIVE) mg/dL Urine Ketones (NEGATIVE) mg/dL Urine Occult Blood (NEGATIVE) Urine Nitrite (NEGATIVE) Urine Bilirubin (NEGATIVE) Urine Urobilinogen (<2.0) EU/dL Ur Leukocyte Esterase (NEGATIVE) Urine RBC (0-2/HPF) Urine WBC (0-5/HPF) Ur Epithelial Cells (NONE-FEW) Urine Bacteria (NEGATIVE) WBC Casts (NEGATIVE) Urine Mucus (NONE-MOD) Urine Opiates Screen (NEGATIVE) Ur Oxycodone Screen (NEGATIVE) Urine Methadone Screen (NEGATIVE) Ur Barbiturates Screen (NEGATIVE) Ur Phencyclidine Scrn (NEGATIVE) Ur Amphetamine Screen (NEGATIVE) U Methamphetamines Scrn (NEGATIVE) U Benzodiazepines Scrn (NEGATIVE) U Cocaine Metab Screen (NEGATIVE) U Marijuana (THC) Screen (NEGATIVE) Ketones (NEG) SARS-CoV-2 RNA (MARTÍNEZ) (NEGATIVE) 12/12/20 12/12/20 12/12/20 Range/Units 12:01 13:05 13:42 WBC (4.0-11.0) K/uL RBC (4.50-5.90) M/uL Hgb (13.0-17.0) g/dL Hct (38.0-50.0) % MCV (80.0-98.0) fL MCH (27.0-32.0) pg MCHC (31.0-37.0) g/dL RDW Std Deviation (28.0-62.0) fl RDW Coeff of Zach (11.0-15.0) % Plt Count (150-400) K/uL MPV (7.40-12.00) fL Add Manual Diff Neutrophils % (Manual) (48.0-80.0) % Band Neutrophils % % Lymphocytes % (Manual) (16.0-40.0) % Monocytes % (Manual) (0.0-15.0) % Metamyelocytes % % Nucleated RBC % /100WBC Absolute Seg Neuts (1.4-5.7) Band Neutrophils # Lymphocytes # (Manual) (0.6-2.4) Monocytes # (Manual) (0.0-0.8) Absolute Metamyelocyte Nucleated RBCs # K/uL VBG pH 7.36 (7.31-7.41) VBG pCO2 27 L (41-51) mmHG VBG pO2 56 mmHG VBG HCO3 15 L (23-28) mEq/L VBG Total CO2 14 L (24-29) mmol/L VBG Base Excess -8.8 L (-2.0-3.0) Sodium (136-148) mmol/L Potassium (3.5-5.1) mmol/L Chloride (98-107) mmol/L Carbon Dioxide (21.0-32.0) mmol/L BUN (7.0-18.0) mg/dL Creatinine (0.8-1.3) mg/dL Est Cr Clr Drug Dosing mL/min Estimated GFR (MDRD) ml/min Glucose (74-106) mg/dL POC Glucose 210 H 269 H (70-99) mg/dL Lactic Acid (0.4-2.0) mmol/L Calcium (8.5-10.1) mg/dL Phosphorus (2.6-4.7) mg/dL Magnesium (1.8-2.4) mg/dL Total Bilirubin (0.2-1.0) mg/dL AST (15-37) IU/L ALT (14-63) IU/L Alkaline Phosphatase (46-116) U/L Total Protein (6.4-8.2) g/dL Albumin (3.4-5.0) g/dL Globulin (2.6-4.0) g/dL Albumin/Globulin Ratio (0.9-1.6) Lipase (73-393) U/L Urine Color Urine Appearance Urine pH (5.0-8.0) Ur Specific [place] (1.001-1.035) Urine Protein (NEGATIVE) mg/dL Urine Glucose (UA) (NEGATIVE) mg/dL Urine Ketones (NEGATIVE) mg/dL Urine Occult Blood (NEGATIVE) Urine Nitrite (NEGATIVE) Urine Bilirubin (NEGATIVE) Urine Urobilinogen (<2.0) EU/dL Ur Leukocyte Esterase (NEGATIVE) Urine RBC (0-2/HPF) Urine WBC (0-5/HPF) Ur Epithelial Cells (NONE-FEW) Urine Bacteria (NEGATIVE) WBC Casts (NEGATIVE) Urine Mucus (NONE-MOD) Urine Opiates Screen (NEGATIVE) Ur Oxycodone Screen (NEGATIVE) Urine Methadone Screen (NEGATIVE) Ur Barbiturates Screen (NEGATIVE) Ur Phencyclidine Scrn (NEGATIVE) Ur Amphetamine Screen (NEGATIVE) U Methamphetamines Scrn (NEGATIVE) U Benzodiazepines Scrn (NEGATIVE) U Cocaine Metab Screen (NEGATIVE) U Marijuana (THC) Screen (NEGATIVE) Ketones (NEG) SARS-CoV-2 RNA (MARTÍNEZ) (NEGATIVE) 12/12/20 12/12/20 12/12/20 Range/Units 13:42 14:08 15:12 WBC (4.0-11.0) K/uL RBC (4.50-5.90) M/uL Hgb (13.0-17.0) g/dL Hct (38.0-50.0) % MCV (80.0-98.0) fL MCH (27.0-32.0) pg MCHC (31.0-37.0) g/dL RDW Std Deviation (28.0-62.0) fl RDW Coeff of Zach (11.0-15.0) % Plt Count (150-400) K/uL MPV (7.40-12.00) fL Add Manual Diff Neutrophils % (Manual) (48.0-80.0) % Band Neutrophils % % Lymphocytes % (Manual) (16.0-40.0) % Monocytes % (Manual) (0.0-15.0) % Metamyelocytes % % Nucleated RBC % /100WBC Absolute Seg Neuts (1.4-5.7) Band Neutrophils # Lymphocytes # (Manual) (0.6-2.4) Monocytes # (Manual) (0.0-0.8) Absolute Metamyelocyte Nucleated RBCs # K/uL VBG pH (7.31-7.41) VBG pCO2 (41-51) mmHG VBG pO2 mmHG VBG HCO3 (23-28) mEq/L VBG Total CO2 (24-29) mmol/L VBG Base Excess (-2.0-3.0) Sodium 128 L (136-148) mmol/L Potassium 4.6 (3.5-5.1) mmol/L Chloride 95 L (98-107) mmol/L Carbon Dioxide 14.6 L (21.0-32.0) mmol/L BUN 13 (7.0-18.0) mg/dL Creatinine 1.2 (0.8-1.3) mg/dL Est Cr Clr Drug Dosing 103.00 mL/min Estimated GFR (MDRD) > 60.0 ml/min Glucose 301 H (74-106) mg/dL POC Glucose 256 H 229 H (70-99) mg/dL Lactic Acid (0.4-2.0) mmol/L Calcium 8.5 (8.5-10.1) mg/dL Phosphorus (2.6-4.7) mg/dL Magnesium (1.8-2.4) mg/dL Total Bilirubin 0.4 (0.2-1.0) mg/dL AST 21 (15-37) IU/L ALT 20 (14-63) IU/L Alkaline Phosphatase 58 (46-116) U/L Total Protein 8.5 H (6.4-8.2) g/dL Albumin 3.2 L (3.4-5.0) g/dL Globulin 5.3 H (2.6-4.0) g/dL Albumin/Globulin Ratio 0.6 L (0.9-1.6) Lipase (73-393) U/L Urine Color Urine Appearance Urine pH (5.0-8.0) Ur Specific [place] (1.001-1.035) Urine Protein (NEGATIVE) mg/dL Urine Glucose (UA) (NEGATIVE) mg/dL Urine Ketones (NEGATIVE) mg/dL Urine Occult Blood (NEGATIVE) Urine Nitrite (NEGATIVE) Urine Bilirubin (NEGATIVE) Urine Urobilinogen (<2.0) EU/dL Ur Leukocyte Esterase (NEGATIVE) Urine RBC (0-2/HPF) Urine WBC (0-5/HPF) Ur Epithelial Cells (NONE-FEW) Urine Bacteria (NEGATIVE) WBC Casts (NEGATIVE) Urine Mucus (NONE-MOD) Urine Opiates Screen (NEGATIVE) Ur Oxycodone Screen (NEGATIVE) Urine Methadone Screen (NEGATIVE) Ur Barbiturates Screen (NEGATIVE) Ur Phencyclidine Scrn (NEGATIVE) Ur Amphetamine Screen (NEGATIVE) U Methamphetamines Scrn (NEGATIVE) U Benzodiazepines Scrn (NEGATIVE) U Cocaine Metab Screen (NEGATIVE) U Marijuana (THC) Screen (NEGATIVE) Ketones (NEG) SARS-CoV-2 RNA (MARTÍNEZ) (NEGATIVE) Meds: Medications Generic Name Dose Route Start Last Admin Trade Name Freq PRN Reason Stop Dose Admin Dextrose/Water 50 ml 12/11/20 18:21 50% Dextrose In Water 50 Ml Syringe IVPUSH ASDIRECTED PRN Hypoglycemia Glucagon 1 mg 12/11/20 18:21 Glucagon,Human Recombinant 1 Mg Vial IM ASDIRECTED PRN Hypoglycemia Lactated Ringer's 1,000 mls @ 200 mls/hr 12/11/20 23:30 12/12/20 00:32 Ringers, Lactated IV 200 mls/hr ASDIRECTED KARLIE Administration Piperacillin Sod/Tazobactam 50 mls @ 100 mls/hr 12/12/20 06:00 12/12/20 16:00 Sod 3.375 gm/ Sodium Chloride IV 100 mls/hr Q8H KARLIE Administration Pantoprazole Sodium 40 mg/ 10 mls @ 300 mls/hr 12/11/20 23:45 12/12/20 09:56 Sodium Chloride IV 300 mls/hr DAILY KARLIE Administration Dextrose/Sodium Chloride 1,000 mls @ 125 mls/hr 12/12/20 02:15 12/12/20 11:26 Dextrose 5%-1/2 Ns IV 125 mls/hr ASDIRECTED KARLIE Administration Dextrose/Sodium Chloride 1,000 mls @ 125 mls/hr 12/12/20 11:30 12/12/20 15:43 Dextrose 5%-1/2 Ns IV 125 mls/hr CONTINUOUS KARLIE Administration Vancomycin HCl 1.25 gm/ Premix 250 mls @ 166.667 mls/hr 12/12/20 13:15 12/12/20 13:51 IV 166.667 mls/hr Q8H KARLIE Administration Insulin Regular in 0.9 % NACL 100 mls @ 489.882 mls/hr 12/12/20 13:11 12/12/20 16:21 Myxredlin In Ns 100 Unit/100 Ml IV 2 units/kg/hr TITRATE KARLIE 163.294 mls/hr Administration Protocol 6 UNITS/KG/HR Sodium Bicarbonate 50 meq/ 100 mls @ 200 mls/hr 12/12/20 16:15 Dextrose/Water IV 12/12/20 16:44 ONETIME ONE Sodium Bicarbonate 50 meq/ 100 mls @ 200 mls/hr 12/12/20 16:45 Dextrose/Water IV 12/12/20 17:14 ONETIME ONE Ondansetron HCl 4 mg 12/11/20 23:32 Ondansetron 4 Mg/2 Ml Sdv IVPUSH Q4H PRN Nausea/Vomiting Sodium Chloride 10 ml 12/11/20 18:14 12/11/20 18:34 Sodium Chloride 0.9% 10 Ml Syringe FLUSH 10 ml ASDIRECTED PRN Administration Keep Vein Open Sodium Chloride 2.5 ml 12/11/20 18:14 12/11/20 18:34 Sodium Chloride 0.9% 2.5 Ml Syringe FLUSH 2.5 ml ASDIRECTED PRN Administration Keep Vein Open Vancomycin HCl 1 dose 12/12/20 13:15 Pharmacy To Dose - Vancomycin .XX ASDIRECTED KARLIE Discontinued Medications Generic Name Dose Route Start Last Admin Trade Name Freq PRN Reason Stop Dose Admin Albuterol 8 gm 12/12/20 08:44 12/12/20 15:56 Albuterol 8 Gm Inhaler INH 12/12/20 08:45 Not Given ONETIME STA Sodium Chloride 1,000 mls @ 1,000 mls/hr 12/11/20 18:16 12/11/20 18:34 Normal Saline IV 12/11/20 19:15 1,000 mls/hr .Bolus ONE Administration Sodium Chloride 1,000 mls @ 1,000 mls/hr 12/11/20 18:41 12/11/20 18:44 Normal Saline IV 12/11/20 19:40 1,000 mls/hr .Bolus ONE Administration Sodium Chloride 500 mls @ 999 mls/hr 12/11/20 18:45 Normal Saline IV .BOLUS KARLIE Insulin Human Regular 100 unit 100 mls @ 6 mls/hr 12/11/20 19:30 / Sodium Chloride IV TITRATE KARLIE Protocol 6 UNIT/HR Insulin Regular in 0.9 % NACL 100 mls @ 489.882 mls/hr 12/11/20 22:15 12/12/20 10:03 Myxredlin In Ns 100 Unit/100 Ml IV Infused TITRATE KARLIE Titration Protocol 6 UNITS/KG/HR Piperacillin Sod/Tazobactam 50 mls @ 100 mls/hr 12/11/20 22:05 12/11/20 22:18 Sod 3.375 gm/ Sodium Chloride IV 12/11/20 22:34 100 mls/hr ONETIME ONE Administration Sodium Chloride 1,000 mls @ 999 mls/hr 12/11/20 22:30 Normal Saline IV .BOLUS KARLIE Sodium Chloride 1,000 mls @ 999 mls/hr 12/11/20 22:20 12/11/20 22:21 Normal Saline IV 12/11/20 23:20 999 mls/hr NOW STA Administration Vancomycin HCl 1.25 gm/ Premix 250 mls @ 250 mls/hr 12/11/20 23:05 12/11/20 23:07 IV 12/11/20 23:06 250 mls/hr ONETIME ONE Administration Lactated Ringer's 1,000 mls @ 999 mls/hr 12/11/20 23:23 12/12/20 00:01 Ringers, Lactated IV 12/12/20 00:23 999 mls/hr .BOLUS ONE Administration Sodium Bicarbonate 100 meq/ 200 mls @ 100 mls/hr 12/12/20 15:26 12/12/20 15:56 Dextrose/Water IV 12/12/20 17:25 Not Given ONETIME ONE Insulin Human Regular 10 unit 12/11/20 18:21 12/11/20 18:33 Insulin Regular, Human 100 Units/Ml 10 Ml Vial IVPUSH 12/11/20 18:22 10 unit ONETIME ONE Administration Protocol Iopamidol 100 ml 12/11/20 20:30 12/11/20 21:35 Iopamidol 755 Mg/Ml 100 Ml Bottle IVPUSH 12/11/20 20:31 100 ml ONETIME ONE Administration Sodium Bicarbonate 50 meq 12/11/20 23:16 12/12/20 00:00 Sodium Bicarbonate 8.4% 50 Meq/50 Ml Syringe IVPUSH 12/11/20 23:17 50 meq ONETIME ONE Administration Sodium Bicarbonate 50 meq 12/11/20 23:28 12/12/20 00:10 Sodium Bicarbonate 8.4% 50 Meq/50 Ml Syringe IVPUSH 12/11/20 23:29 50 meq ONETIME ONE Administration Vancomycin HCl 1,250 mg 12/11/20 22:15 12/12/20 11:54 Vancomycin 500 Mg Sdv IV Not Given Q12H KARLIE - Re-Assessments/Exams Free Text/Narrative Re-Assessment/Exam: 12/12/20 11:30 I discussed the case with Dr. Dunn. The anion gap is 19. She once anion gap 12 or less before she stops the insulin drip and therefore we are waiting for an ICU bed or for his improvement. Patient is alert oriented vital signs stable. He is beginning to take p.o. We change the vancomycin the pharmacy dosing versus fixed dosing. Free Text/Narrative Re-Assessment/Exam: 12/12/20 15:28 Discussed with at [facility]. Dr. rTacy accepted the patient and said to stop the glucose drip and start a bicarb drip 8.4% 100 mL an hour. They wanted the ambulance to check glucose every 1 hour and keep in touch. They would reassess on arrival but there is definitely a bed available and they said we can initiate transport. Departure - Departure Time of Disposition: 17:10 Sepsis Event Note (ED) - Focused Exam Vital Signs: Vital Signs Pulse Resp BP Pulse Ox 12/12/20 16:14 83 21 H 123/83 98 12/12/20 15:10 82 19 119/74 97 12/12/20 14:10 77 18 115/78 96 12/12/20 13:06 94 20 122/76 97 12/12/20 12:00 81 20 122/78 97 12/12/20 11:11 88 19 126/80 99 12/12/20 09:59 87 16 128/88 97 12/12/20 09:00 88 22 H 123/84 98 12/12/20 08:00 89 20 130/83 99 12/12/20 06:55 85 18 129/85 99 12/12/20 05:52 89 18 130/89 98 12/12/20 04:53 92 19 134/92 H 99 - My Orders Last 24 Hours: My Active Orders 12/11/20 18:14 Sodium Chloride 0.9% [Saline Flush] 10 ml FLUSH ASDIRECTED PRN Sodium Chloride 0.9% [Saline Flush] 2.5 ml FLUSH ASDIRECTED PRN Saline Lock Insert [OM.PC] Stat 12/11/20 18:21 Dextrose 50% in Water 50 ml IVPUSH ASDIRECTED PRN Glucagon,Human Recombinant [GlucaGen] 1 mg IM ASDIRECTED PRN 12/11/20 18:43 Blood Culture x2 Reflex Set [OM.PC] Stat 12/11/20 19:08 CULTURE BLOOD [BC] Stat 12/11/20 19:18 CULTURE BLOOD [BC] Stat 12/12/20 13:11 Insulin Regular in 0.9 % NACL [Myxredlin in NS 100 UNIT/100 ML] 100 ml IV TITRATE - Assessment/Plan Last 24 Hours: My Active Orders 12/11/20 18:14 Sodium Chloride 0.9% [Saline Flush] 10 ml FLUSH ASDIRECTED PRN Sodium Chloride 0.9% [Saline Flush] 2.5 ml FLUSH ASDIRECTED PRN Saline Lock Insert [OM.PC] Stat 12/11/20 18:21 Dextrose 50% in Water 50 ml IVPUSH ASDIRECTED PRN Glucagon,Human Recombinant [GlucaGen] 1 mg IM ASDIRECTED PRN 12/11/20 18:43 Blood Culture x2 Reflex Set [OM.PC] Stat 12/11/20 19:08 CULTURE BLOOD [BC] Stat 12/11/20 19:18 CULTURE BLOOD [BC] Stat 12/12/20 13:11 Insulin Regular in 0.9 % NACL [Myxredlin in NS 100 UNIT/100 ML] 100 ml IV TITRATE
[2020-12-11] MEDS ORDERED: 50% Dextrose in Water 50 ML Syringe IVPUSH PRN (18:21)
[2020-12-11] MEDS ORDERED: Glucagon,Human Recombinant 1 MG Vial IM PRN (18:21)
[2020-12-11] MEDS ORDERED: Insulin Regular, Human 100 Units/ML 10 ML Vial IVPUSH ONE (18:21)
[2020-12-11] MEDS ORDERED: Sodium Chloride 0.9% 500 ML IV SCH (18:45)
--- NOTE | 2020-12-11 18:55 | CR ---
Indication: Dyspnea. Technique: AP portable view of the chest. Comparison: None Findings: Heart is normal in size. The lungs are clear. No infiltrate, pleural effusion, or pneumothorax is identified. Impression: No acute cardiopulmonary process Dictated by Jenny Diaz MD @ 12/11/2020 6:52:38 PM (Electronically Signed)
[2020-12-11 19:23] LABS: CARBON DIOXIDE,CO2 5.3 mmol/L (21.0-32.0); POTASSIUM,K 6.2 mmol/L (3.5-5.1)
[2020-12-11] MEDS ORDERED: Iopamidol 755 Mg/ML 100 ML Bottle IVPUSH ONE (20:30)
--- NOTE | 2020-12-11 21:27 | CT ---
Indication: Abdominal pain. Technique: Multiple contiguous axial images were obtained from the lung bases to the symphysis pubis after the intravenous administration of 100 cc Isovue 370. Please note that all CT scans at this facility use dose modulation, iterative reconstruction, and/or weight-based dosing when appropriate to reduce radiation dose to as low as reasonably achievable. Comparison: None Findings: The lung bases are clear. No infiltrate, pleural effusion, or pneumothorax is identified. The heart is normal in size. No pericardial effusion is identified. Diffuse fatty infiltration of the liver is identified. No intrahepatic biliary ductal dilatation is identified. The gallbladder, spleen, adrenals, kidneys are normal. No intrahepatic biliary ductal dilatation is identified. The pancreas appears to be lower in attenuation than would be expected. The pancreatic duct is questionably enlarged. In the pelvis, the urinary bladder is normal. The prostate gland is normal. The small and large bowel are normal in caliber. No free air or free fluid is identified within the abdomen or pelvis. The appendix is normal in size. The aorta is normal in caliber. No lytic or blastic lesions of the spine are identified. Impression: Low attenuation of the pancreas with questionable dilatation of the pancreatic duct, uncertain significance. An ultrasound may be of benefit in further evaluating this finding. Please note that all CT scans at this facility use dose modulation, iterative reconstruction, and/or weight-based dosing when appropriate to reduce radiation dose to as low as reasonably achievable. Dictated by Jenny Diaz MD @ 12/11/2020 9:25:32 PM (Electronically Signed)
[2020-12-11] MEDS ORDERED: Piperacillin/Tazobactam 3.375 GM in Sodium Chloride 0.9% 50 ML IV ONE (22:05)
[2020-12-11] MEDS ORDERED: Insulin Regular in 0.9 % NACL 100 ML IV SCH (22:15)
[2020-12-11] MEDS ORDERED: Sodium Chloride 0.9% 1,000 ML IV STA (22:20)
[2020-12-11] MEDS ORDERED: Sodium Chloride 0.9% 1,000 ML IV SCH (22:30)
[2020-12-11] MEDS ORDERED: VANCOmycin 1.25 GM/250 ML 1.25 GM in Premix Bag 1 BAG IV ONE (23:05)
[2020-12-11] MEDS: Vancomycin 500 MG SDV IV SCH (23:08)
[2020-12-11] MEDS ORDERED: Sodium Bicarbonate 8.4% 50 MEQ/50 ML Syringe IVPUSH ONE ×2 (23:16→23:28)
[2020-12-11] MEDS ORDERED: Lactated Ringers 1,000 ML IV ONE (23:23)
[2020-12-11 23:25] LABS: POTASSIUM,K 6.2 mmol/L (3.5-5.1)
[2020-12-11] MEDS ORDERED: Lactated Ringers 1,000 ML IV SCH (23:30)
[2020-12-11] MEDS ORDERED: Ondansetron 4 MG/2 ML SDV IVPUSH PRN (23:32)
--- NOTE | 2020-12-11 23:33 | US ---
Indication: Epigastric pain. Technique: Ultrasound of the right upper quadrant. Comparison: None Findings: The visualized portions of the pancreas are grossly normal. The pancreas is partially obscured. The liver measures 17.8 centimeters in maximum dimension. Mild diffuse fatty infiltration of the liver is identified. No intrahepatic biliary ductal dilatation or intrahepatic masses are identified. The gallbladder demonstrates no stones or sludge. The gallbladder wall measures 2 mm in thickness. The common bile duct measures 2 mm. No sonographic Mcgarry`s sign is identified. Inferior vena cava is patent. The right kidney measures 10.8 x 4.8 x 6.5 centimeters in size. No hydronephrosis is identified. Impression: Mild diffuse fatty infiltration of the liver. Only partial visualization of the pancreas. Dictated by Jenny Diaz MD @ 12/11/2020 11:31:57 PM (Electronically Signed)
--- NOTE | 2020-12-11 23:51 | PCM.SN.2 ---
- Free Text/Narrative Note: Was requested by ER physician to help out with management of the patient due to no beds available and patient waiting in ER, , orders placed for DKA management based on chart review. Time Documentation
[2020-12-12] MEDS: Pantoprazole 40 MG in Sodium Chloride 0.9% 10 ML IV SCH ×2 (00:01→09:56)
[2020-12-12 00:09] LABS: BLOOD UREA NITROGEN,BUN 17 mg/dL (7.0-18.0); CHLORIDE,CL 88 mmol/L (98-107); GLUCOSE RANDOM 499 mg/dL (74-106); POTASSIUM,K 6.5 mmol/L (3.5-5.1); SODIUM,NA 125 mmol/L (136-148)
[2020-12-12 00:19] LABS: CARBON DIOXIDE,CO2 6.3 mmol/L (21.0-32.0)
[2020-12-12] MEDS: Dextrose 5%-0.45% NaCl 1,000 ML IV SCH ×2 (02:09→11:26)
[2020-12-12 04:49] LABS: BLOOD UREA NITROGEN,BUN 14 mg/dL (7.0-18.0); CARBON DIOXIDE,CO2 11.7 mmol/L (21.0-32.0); CHLORIDE,CL 94 mmol/L (98-107); GLUCOSE RANDOM 218 mg/dL (74-106); SODIUM,NA 130 mmol/L (136-148)
[2020-12-12] MEDS: Piperacillin/Tazobactam 3.375 GM in Sodium Chloride 0.9% 50 ML IV SCH ×2 (07:37→16:00)
[2020-12-12 08:01] LABS: BLOOD UREA NITROGEN,BUN 13 mg/dL (7.0-18.0); CARBON DIOXIDE,CO2 12.9 mmol/L (21.0-32.0); CHLORIDE,CL 94 mmol/L (98-107); GLUCOSE RANDOM 273 mg/dL (74-106); SODIUM,NA 128 mmol/L (136-148)
[2020-12-12] MEDS ORDERED: Albuterol 8 GM Inhaler INH STA (08:44)
[2020-12-12 11:12] LABS: BLOOD UREA NITROGEN,BUN 14 mg/dL (7.0-18.0); CARBON DIOXIDE,CO2 14.5 mmol/L (21.0-32.0); CHLORIDE,CL 95 mmol/L (98-107); GLUCOSE RANDOM 256 mg/dL (74-106); POTASSIUM,K 4.7 mmol/L (3.5-5.1); SODIUM,NA 129 mmol/L (136-148)
[2020-12-12] MEDS ORDERED: Dextrose 5%-0.45% NaCl 1,000 ML IV SCH (11:30)
[2020-12-12] MEDS: Vancomycin 500 MG SDV IV SCH (11:54)
[2020-12-12] MEDS: Insulin Regular in 0.9 % NACL 100 ML IV SCH ×2 (13:13→16:21)
[2020-12-12] MEDS ORDERED: VANCOmycin 1.25 GM/250 ML 1.25 GM in Premix Bag 1 BAG IV SCH (13:15)
[2020-12-12 14:29] LABS: BLOOD UREA NITROGEN,BUN 13 mg/dL (7.0-18.0); CARBON DIOXIDE,CO2 14.6 mmol/L (21.0-32.0); CHLORIDE,CL 95 mmol/L (98-107); GLUCOSE RANDOM 301 mg/dL (74-106); POTASSIUM,K 4.6 mmol/L (3.5-5.1); SODIUM,NA 128 mmol/L (136-148)
[2020-12-12] MEDS ORDERED: Sodium Bicarbonate 100 MEQ in Dextrose 5% in Water 100 ML IV ONE ×2 (15:26)
[2020-12-12] MEDS ORDERED: SODIUM BICARBONATE IV ONE ×4 (16:15→16:45)
[2020-12-12] MEDS ORDERED: WATER IV ONE ×4 (16:15→16:45)
[2020-12-12] MEDS ORDERED: DEXTROSE 5% IV ONE ×4 (16:15→16:45)
[2020-12-12] MEDS ORDERED: Insulin Regular in 0.9 % NACL 100 ML IV SCH (16:18)
[2020-12-13 16:02] LABS: C.TRACHOMATIS BY TMA Negative (Negative); N.GONORRHOEAE BY TMA Negative (Negative)
== END 2020-12-12 17:41 ==
LOC: MW.ED 15:38
DX: K85.90 Acute pancreatitis without necrosis or infection, unspecified (principal); E11.10 Type 2 diabetes mellitus with ketoacidosis without coma; N17.9 Acute kidney failure, unspecified; J45.909 Unspecified asthma, uncomplicated; R00.0 Tachycardia, unspecified; Z20.822 Contact with and (suspected) exposure to COVID-19
CPT/HCPCS: 36415; 71045; 74177; 76705; 80048; 80053; 80305; 81001; 82009; 82803; 82947; 83605; 83690; 83735; 84100; 84132; 85025; 87040; 87491; 87591; 87635; 87804; 93005; 96365; 96366; 96367; 96375; 96376; 99291; 99292; C9113; J1815; J2543; J3370; J7030; J7042; J7120; Q9967; U0002

== ENCOUNTER 2021-03-02 01:20 | Emergency (ER) | payer MEDICAID ==
--- NOTE | 2021-03-02 01:34 | EDM.PDOC ---
ED HPI GENERAL MEDICAL PROBLEM - General Chief Complaint: General Stated Complaint: MEDICAL CLEARANCE Time Seen by Provider: 03/02/21 01:24 Source of Information: Reports: Patient History Limitations: Reports: No Limitations - History of Present Illness INITIAL COMMENTS - FREE TEXT/NARRATIVE: Patient is a 30-year-old male brought in by police for medical clearance. Patient history of diabetes. On exam he denies any complaints denies any fever chills nausea vomiting. He does admit to drinking alcohol tonight. - Related Data Allergies Allergy/AdvReac Type Severity Reaction Status Date / Time No Known Allergies Allergy Verified 03/02/21 01:31 Past Medical History - Past Health History Medical/Surgical History: Denies Medical/Surgical History Respiratory History: Reports: Asthma - Infectious Disease History Infectious Disease History: Reports: None - Past Surgical History Musculoskeletal Surgical History: Reports: Other (See Below) Other Musculoskeletal Surgeries/Procedures:: Left ankle-pins placed per patient Social & Family History - Family History Family Medical History: No Pertinent Family History - Caffeine Use Caffeine Use: Reports: Soda ED ROS GENERAL - Review of Systems Review Of Systems: See Below Constitutional: Reports: No Symptoms HEENT: Reports: No Symptoms Respiratory: Reports: No Symptoms Cardiovascular: Reports: No Symptoms Endocrine: Reports: No Symptoms GI/Abdominal: Reports: No Symptoms : Reports: No Symptoms Musculoskeletal: Reports: No Symptoms Skin: Reports: No Symptoms Neurological: Reports: No Symptoms Psychiatric: Reports: No Symptoms Hematologic/Lymphatic: Reports: No Symptoms Immunologic: Reports: No Symptoms ED EXAM, GENERAL - Physical Exam Exam: See Below Exam Limited By: No Limitations General Appearance: Alert, WD/WN, No Apparent Distress Eye Exam: Bilateral Eye: EOMI Head: Atraumatic, Normocephalic Respiratory/Chest: No Respiratory Distress GI/Abdominal: Normal Bowel Sounds, Soft, Non-Tender Extremities: Normal Inspection, Normal Range of Motion Neurological: Alert, Oriented, Normal Gait Course - Vital Signs Last Recorded V/S: Last Vital Signs Temp 97.9 F 03/02/21 01:29 Pulse 81 03/02/21 01:29 Resp 16 03/02/21 01:29 BP 142/103 H 03/02/21 01:29 Pulse Ox 97 03/02/21 01:29 Departure - Departure Time of Disposition: 01:33 Disposition: Home, Self-Care 01 Condition: Good Clinical Impression: General medical exam - Discharge Information *PRESCRIPTION DRUG MONITORING PROGRAM REVIEWED*: Not Applicable *COPY OF PRESCRIPTION DRUG MONITORING REPORT IN PATIENT MICHELLE: Not Applicable Instructions: Medical Screening Exam Referrals: PCP,None [Primary Care Provider] - Additional Instructions: The following information is given to patients seen in the emergency department who are being discharged to home. This information is to outline your options for follow-up care. We provide all patients seen in our emergency department with a follow-up referral. The need for follow-up, as well as the timing and circumstances, are variable depending upon the specifics of your emergency department visit. If you don't have a primary care physician on staff, we will provide you with a referral. We always advise you to contact your personal physician following an emergency department visit to inform them of the circumstance of the visit and for follow-up with them and/or the need for any referrals to a consulting specialist. The emergency department will also refer you to a specialist when appropriate. This referral assures that you have the opportunity for follow-up care with a specialist. All of these measure are taken in an effort to provide you with optimal care, which includes your follow-up. Under all circumstances we always encourage you to contact your private physician who remains a resource for coordinating your care. When calling for follow-up care, please make the office aware that this follow-up is from your recent emergency room visit. If for any reason you are refused follow-up, please contact the [facility] Emergency Department at and asked to speak to the emergency department charge nurse. Please follow up with your primary care physician. If you do not have a primary care physician, see below: [facility] [address] [place] [id number] [facility] [address] [place] [id number] Sepsis Event Note (ED) - Evaluation Sepsis Screening Result: No Definite Risk - Focused Exam Vital Signs: Vital Signs Temp Pulse Resp BP Pulse Ox 03/02/21 01:29 97.9 F 81 16 142/103 H 97 - Assessment/Plan Assessment:: Patient is a 30-year-old male brought in for medical clearance. Patient on exam looks well no complaints. Patient blood sugar is 146. No signs of injuries or trauma.
== END 2021-03-02 01:38 ==
LOC: MW.ED 01:20
DX: Z00.00 Encounter for general adult medical examination without abnormal findings (principal); J45.909 Unspecified asthma, uncomplicated; E11.9 Type 2 diabetes mellitus without complications
CPT/HCPCS: 82947; 99283

== ENCOUNTER 2021-05-16 14:11 | Emergency (ER) | payer MEDICAID | END 2021-05-16 15:00 | disposition home or self-care (01) | LOC: MW.ED 14:11 | DX: E11.9 Type 2 diabetes mellitus without complications (principal); Z91.19 Patient's noncompliance with other medical treatment and regimen | CPT/HCPCS: 99283 ==

== ENCOUNTER 2021-11-03 20:31 | Emergency (ER) | payer MEDICAID ==
[2021-11-03] MEDS ORDERED: Albuterol/Ipratropium 3.0-0.5 MG/3 ML Neb Soln NEB ONE (21:00)
[2021-11-03 21:36] LABS: CORONAVIRUS COVID-19 NAA NEGATIVE (NEGATIVE); INFLUENZA A NAA NEGATIVE (NEGATIVE); INFLUENZA B NAA NEGATIVE (NEGATIVE)
[2021-11-03] MEDS ORDERED: Azithromycin 250 MG Tab PO STA (21:45)
[2021-11-03] MEDS ORDERED: predniSONE 20 MG Tab PO ONE (21:48)
== END 2021-11-03 22:08 | disposition home or self-care (01) ==
LOC: MW.ED 20:31
DX: J18.9 Pneumonia, unspecified organism (principal); E11.9 Type 2 diabetes mellitus without complications; Z79.4 Long term (current) use of insulin; Z20.822 Contact with and (suspected) exposure to COVID-19
CPT/HCPCS: 0240U; 71045; 82947; 99285; A9270; 99284; J7620-GY

== ENCOUNTER 2021-12-25 20:30 | Emergency (ER) | payer MEDICAID ==
[2021-12-25] MEDS ORDERED: Ondansetron 4 MG/2 ML SDV IVPUSH ONE (21:13)
[2021-12-25] MEDS ORDERED: Sodium Chloride 0.9% 2.5 ML Syringe FLUSH PRN (21:13)
[2021-12-25] MEDS ORDERED: Sodium Chloride 0.9% 10 ML Syringe FLUSH PRN (21:13)
[2021-12-25] MEDS ORDERED: Sodium Chloride 0.9% 1,000 ML IV ONE (21:13)
[2021-12-25] MEDS ORDERED: Ketorolac 30 MG/ML SDV IVPUSH ONE (21:16)
[2021-12-25 22:10] LABS: BLOOD UREA NITROGEN,BUN 14 mg/dL (7.0-18.0); CARBON DIOXIDE,CO2 25.4 mmol/L (21.0-32.0); CHLORIDE,CL 104 mmol/L (98-107); GLUCOSE RANDOM 72 mg/dL (74-106); POTASSIUM,K 4.5 mmol/L (3.5-5.1); SODIUM,NA 140 mmol/L (136-148)
[2021-12-25 22:17] LABS: ESTIMATED GFR 75 mL/min (>60)
[2021-12-26 00:28] LABS: C. TRACHOMATIS BY PCR NOT DETECTED; N. GONORRHOEAE BY PCR NOT DETECTED
[2021-12-26] MEDS ORDERED: Azithromycin 250 MG Tab PO ONE (00:29)
[2021-12-26] MEDS ORDERED: cefTRIAXone 1 GM in Sodium Chloride 0.9% 50 ML IV ONE (00:29)
== END 2021-12-26 01:29 | disposition home or self-care (01) ==
LOC: MW.ED 20:30
DX: K52.9 Noninfective gastroenteritis and colitis, unspecified (principal); R18.8 Other ascites; Z20.2 Contact with and (suspected) exposure to infections with a predominantly sexual mode of transmission; E11.9 Type 2 diabetes mellitus without complications; Z79.4 Long term (current) use of insulin
CPT/HCPCS: 36415; 74176; 80053; 80307; 81001; 83880; 84484; 85025; 85610; 87086; 87491; 87591; 96361; 96365; 96375; 99284; A9270; J0696; J1885; J2405; J3490; J7030

== ENCOUNTER 2022-01-13 00:17 | Inpatient (IN) | payer MEDICAID ==
[2022-01-13] MEDS ORDERED: Sodium Chloride 0.9% 1,000 ML IV ONE ×2 (00:18→01:28)
[2022-01-13 01:16] LABS: BLOOD UREA NITROGEN,BUN 12 mg/dL (7.0-18.0); LIPASE 19 U/L (73-393)
[2022-01-13 01:24] LABS: ESTIMATED GFR 54 mL/min (>60)
[2022-01-13 01:26] LABS: SODIUM,NA 117 mmol/L (136-148)
[2022-01-13] MEDS ORDERED: Magnesium Sulfate/Water 2 GM in Premix Bag 1 BAG IV ONE ×2 (01:29→02:28)
[2022-01-13 01:32] LABS: GLUCOSE RANDOM 1564 mg/dL (74-106)
[2022-01-13] MEDS: Dextrose 5%-0.45% NaCl 1,000 ML IV SCH ×2 (01:38→07:04)
[2022-01-13 02:08] LABS: CARBON DIOXIDE,CO2 26.2 mmol/L (21.0-32.0); POTASSIUM,K 3.7 mmol/L (3.5-5.1)
[2022-01-13] MEDS ORDERED: Iopamidol 755 MG/ML 500 ML Multipack Bottle IVPUSH STA (02:57)
[2022-01-13] MEDS ORDERED: Albuterol/Ipratropium 3.0-0.5 MG/3 ML Neb Soln NEB ONE (03:46)
[2022-01-13] MEDS ORDERED: Albuterol/Ipratropium 3.0-0.5 MG/3 ML Neb Soln ONE (03:47)
[2022-01-13] MEDS ORDERED: Furosemide 40 MG/4 ML VIAL IVPUSH ONE ×3 (04:09→16:12)
[2022-01-13] MEDS ORDERED: Sodium Chloride 0.9% 10 ML Syringe FLUSH PRN (08:00)
[2022-01-13] MEDS ORDERED: Sodium Chloride 0.9% 2.5 ML Syringe FLUSH PRN (08:00)
[2022-01-13] MEDS ORDERED: Pantoprazole 40 MG in Sodium Chloride 0.9% 10 ML IVPUSH ONE (08:00)
[2022-01-13] MEDS ORDERED: Acetaminophen 325 MG Tab PO PRN (08:00)
[2022-01-13] MEDS ORDERED: Ondansetron 4 MG/2 ML SDV IVPUSH PRN (08:00)
[2022-01-13] MEDS: Heparin Sodium 5,000 Units/ML Vial SUBCUT SCH ×3 (08:33→23:01)
[2022-01-13 09:16] LABS: CARBON DIOXIDE,CO2 25.3 mmol/L (21.0-32.0); POTASSIUM,K 4.7 mmol/L (3.5-5.1)
[2022-01-13] MEDS ORDERED: Magnesium Sulfate/Water 4 GM in Premix Bag 1 BAG IV ONE (09:41)
[2022-01-13 09:54] LABS: HEMOGLOBIN A1C 6.9 %
[2022-01-13] MEDS: cefTRIAXone 1 GM in Sodium Chloride 0.9% 50 ML IV SCH (10:02)
[2022-01-13] MEDS: Azithromycin 250 MG Tab PO SCH (10:02)
[2022-01-13 12:15] LABS: INFLUENZA A NAA NEGATIVE (NEGATIVE); INFLUENZA B NAA NEGATIVE (NEGATIVE)
[2022-01-13] MEDS: Albuterol/Ipratropium 3.0-0.5 MG/3 ML Neb Soln NEB PRN ×2 (14:00→22:27)
[2022-01-13] MEDS ORDERED: Iopamidol 755 Mg/ML 100 ML Bottle IVPUSH ONE (16:59)
[2022-01-14] MEDS: Albuterol/Ipratropium 3.0-0.5 MG/3 ML Neb Soln NEB PRN ×2 (04:01→15:16)
[2022-01-14 07:19] LABS: CARBON DIOXIDE,CO2 25.2 mmol/L (21.0-32.0); POTASSIUM,K 4.2 mmol/L (3.5-5.1)
[2022-01-14] MEDS: Heparin Sodium 5,000 Units/ML Vial SUBCUT SCH ×2 (08:55→16:33)
[2022-01-14] MEDS: Furosemide 40 MG/4 ML VIAL IVPUSH SCH ×2 (08:55→14:29)
[2022-01-14] MEDS: Azithromycin 250 MG Tab PO SCH (08:55)
[2022-01-14] MEDS: cefTRIAXone 1 GM in Sodium Chloride 0.9% 50 ML IV SCH (08:58)
[2022-01-14 09:07] LABS: BORDETELLA PARAPERT IS1001 Not Detected (Not Detected)
[2022-01-14] MEDS ORDERED: Glucagon,Human Recombinant 1 MG Vial IM PRN (12:10)
[2022-01-14] MEDS ORDERED: 50% Dextrose in Water 50 ML Syringe IVPUSH PRN (12:10)
[2022-01-14] MEDS: Insulin Aspart 100 Units/ML 3 ML Pen SUBCUT SCH (17:11)
[2022-01-15] MEDS: Heparin Sodium 5,000 Units/ML Vial SUBCUT SCH ×4 (00:19→23:56)
[2022-01-15] MEDS: Albuterol/Ipratropium 3.0-0.5 MG/3 ML Neb Soln NEB PRN (00:24)
[2022-01-15 07:33] LABS: CARBON DIOXIDE,CO2 25.8 mmol/L (21.0-32.0)
[2022-01-15] MEDS: Insulin Aspart 100 Units/ML 3 ML Pen SUBCUT SCH ×3 (07:41→16:45)
[2022-01-15] MEDS: Furosemide 40 MG/4 ML VIAL IVPUSH SCH ×2 (08:51→14:02)
[2022-01-15] MEDS: cefTRIAXone 1 GM in Sodium Chloride 0.9% 50 ML IV SCH (08:51)
[2022-01-15] MEDS: Azithromycin 250 MG Tab PO SCH (08:51)
[2022-01-16 07:04] LABS: CARBON DIOXIDE,CO2 31.7 mmol/L (21.0-32.0); POTASSIUM,K 3.8 mmol/L (3.5-5.1)
[2022-01-16] MEDS: Furosemide 40 MG/4 ML VIAL IVPUSH SCH ×2 (08:14→14:36)
[2022-01-16] MEDS: Insulin Aspart 100 Units/ML 3 ML Pen SUBCUT SCH ×3 (08:17→16:56)
[2022-01-16] MEDS: Heparin Sodium 5,000 Units/ML Vial SUBCUT SCH ×3 (08:20→23:32)
[2022-01-16] MEDS: Azithromycin 250 MG Tab PO SCH (10:13)
[2022-01-16] MEDS: cefTRIAXone 1 GM in Sodium Chloride 0.9% 50 ML IV SCH (10:14)
[2022-01-16] MEDS: Albuterol/Ipratropium 3.0-0.5 MG/3 ML Neb Soln NEB PRN (23:32)
[2022-01-17 06:48] LABS: CARBON DIOXIDE,CO2 30.5 mmol/L (21.0-32.0); POTASSIUM,K 4.3 mmol/L (3.5-5.1)
[2022-01-17] MEDS ORDERED: Magnesium Sulfate/Water 4 GM in Premix Bag 1 BAG IV ONE (08:15)
[2022-01-17] MEDS ORDERED: Potassium Chloride 20 MEQ Tab.ER PO ONE (08:15)
[2022-01-17] MEDS: Insulin Aspart 100 Units/ML 3 ML Pen SUBCUT SCH ×3 (08:21→12:06)
[2022-01-17] MEDS ORDERED: Iopamidol 755 MG/ML 500 ML Multipack Bottle IVPUSH ONE ×4 (09:35→15:15)
[2022-01-17] MEDS ORDERED: Tenecteplase 50 MG Kit IV ONE (12:00)
[2022-01-17] MEDS: Furosemide 40 MG/4 ML VIAL IVPUSH SCH (12:05)
[2022-01-17] MEDS: Heparin Sodium 5,000 Units/ML Vial SUBCUT SCH (12:05)
[2022-01-17] MEDS: cefTRIAXone 1 GM in Sodium Chloride 0.9% 50 ML IV SCH (12:06)
[2022-01-17] MEDS: Azithromycin 250 MG Tab PO SCH (12:06)
[2022-01-17] MEDS ORDERED: Insulin Glargine,Hum.Rec.Anlog 100 UNIT/ML 3 ML Pen SUBCUT SCH (21:00)
== END 2022-01-17 13:07 | DRG 637 ==
LOC: MW.ED 00:17 → MW.MS 06:07 → MW.ICU 01-17 12:00
PROVIDERS: ADMIT Internal Medicine; ATTEND Internal Medicine
DX: E11.649 Type 2 diabetes mellitus with hypoglycemia without coma (principal); I63.412 Cerebral infarction due to embolism of left middle cerebral artery; J18.9 Pneumonia, unspecified organism; N17.9 Acute kidney failure, unspecified; J45.20 Mild intermittent asthma, uncomplicated; I50.9 Heart failure, unspecified; Z79.4 Long term (current) use of insulin
CPT/HCPCS: 36415; 70450; 70450-26; 70496; 70496-26; 70498; 70498-26; 71045; 71045-26; 71275; 71275-26; 74177; 74177-26; 80048; 80053; 80061; 80305-QW; 80307; 81001; 82009; 82803; 82947; 83036; 83605; 83690; 83735; 83880; 84100; 84439; 84443; 84484; 85025; 85027; 86140; 87486; 87581; 87633; 87798; 93005; 93306; 94640; 96361; 96365; 96375; 99285-25; A9270-GY; C9113; J0696; J1644; J1815-GY; J1940; J3101; J3475; J3490; J7030; J7042; J7620-GY; Q9967; U0002

== ENCOUNTER 2022-03-09 01:49 | Inpatient (IN) | payer MEDICAID ==
[2022-03-09] MEDS ORDERED: Ondansetron 4 MG/2 ML SDV IVPUSH ONE (02:25)
[2022-03-09] MEDS ORDERED: Sodium Chloride 0.9% 10 ML Syringe FLUSH PRN ×2 (02:25→09:05)
[2022-03-09] MEDS ORDERED: Sodium Chloride 0.9% 2.5 ML Syringe FLUSH PRN ×2 (02:25→09:05)
[2022-03-09] MEDS ORDERED: Sodium Chloride 0.9% 1,000 ML IV ONE (02:25)
[2022-03-09] MEDS ORDERED: Magnesium Sulfate/Water 2 GM in Premix Bag 1 BAG IV ONE (03:09)
[2022-03-09 03:32] LABS: BLOOD UREA NITROGEN,BUN 19 mg/dL (7.0-18.0); CHLORIDE,CL 95 mmol/L (98-107); GLUCOSE RANDOM 176 mg/dL (74-106); POTASSIUM,K 4.5 mmol/L (3.5-5.1); SODIUM,NA 132 mmol/L (136-148)
[2022-03-09 03:38] LABS: ESTIMATED GFR 63 mL/min (>60)
[2022-03-09 05:57] LABS: C. TRACHOMATIS BY PCR NOT DETECTED; N. GONORRHOEAE BY PCR NOT DETECTED
[2022-03-09] MEDS ORDERED: Sodium Chloride 0.9% 250 ML IV STA (06:35)
[2022-03-09] MEDS ORDERED: Iopamidol 755 MG/ML 500 ML Multipack Bottle IVPUSH STA (07:31)
[2022-03-09 08:32] LABS: CARBON DIOXIDE,CO2 28.2 mmol/L (21.0-32.0); POTASSIUM,K 4.5 mmol/L (3.5-5.1)
[2022-03-09] MEDS ORDERED: Furosemide 40 MG/4 ML VIAL IVPUSH ONE (08:41)
[2022-03-09] MEDS ORDERED: Ondansetron 4 MG/2 ML SDV IVPUSH PRN (09:05)
[2022-03-09] MEDS ORDERED: Polyethylene Glycol 3350 Powder 17 GM Packet PO PRN (09:05)
[2022-03-09] MEDS ORDERED: Albuterol/Ipratropium 3.0-0.5 MG/3 ML Neb Soln NEB PRN (09:05)
[2022-03-09] MEDS ORDERED: Acetaminophen 325 MG Tab PO PRN (09:05)
[2022-03-09] MEDS ORDERED: Glucagon,Human Recombinant 1 MG Vial IM PRN (09:12)
[2022-03-09] MEDS ORDERED: 50% Dextrose in Water 50 ML Syringe IVPUSH PRN (09:12)
[2022-03-09] MEDS ORDERED: Apixaban 5 MG Tab PO SCH (09:15)
[2022-03-09 09:24] LABS: CORONAVIRUS COVID-19 NAA NEGATIVE (NEGATIVE); INFLUENZA A NAA NEGATIVE (NEGATIVE); INFLUENZA B NAA NEGATIVE (NEGATIVE); RESPIRATORY SYNCYTIAL VIR NAA NEGATIVE (NEGATIVE)
[2022-03-09] MEDS: Insulin Aspart 100 Units/ML 3 ML Pen SUBCUT SCH ×3 (11:05→17:07)
[2022-03-09] MEDS: Apixaban 5 MG Tab PO SCH ×2 (12:25→22:59)
[2022-03-09] MEDS: Furosemide 40 MG/4 ML VIAL IVPUSH SCH (14:40)
[2022-03-09] MEDS ORDERED: Insulin Glargine,Hum.Rec.Anlog 100 UNIT/ML 3 ML Pen SUBCUT SCH (21:00)
[2022-03-10 07:24] LABS: CARBON DIOXIDE,CO2 28.2 mmol/L (21.0-32.0); POTASSIUM,K 4.1 mmol/L (3.5-5.1)
[2022-03-10] MEDS: Insulin Aspart 100 Units/ML 3 ML Pen SUBCUT SCH ×2 (07:56→11:38)
[2022-03-10] MEDS: Furosemide 40 MG/4 ML VIAL IVPUSH SCH (07:57)
[2022-03-10] MEDS: Apixaban 5 MG Tab PO SCH (08:04)
[2022-03-10] MEDS ORDERED: Empagliflozin 10 MG Tab PO SCH (09:00)
[2022-03-10] MEDS ORDERED: Aspirin 81 MG Tab.EC PO SCH (09:00)
[2022-03-16 08:07] LABS: QUANTIFERON TB1 AG VALUE 0.04 IU/mL; QUANTIFERON TB2 AG VALUE 0.05 IU/mL
== END 2022-03-10 13:32 | disposition home or self-care (01) | DRG 292 ==
LOC: MW.ED 01:49 → MW.MS 09:49 → OBSVTOIN 09:49 → MW.MS 14:50
PROVIDERS: ADMIT Internal Medicine; ATTEND Internal Medicine
DX: I50.21 Acute systolic (congestive) heart failure (principal); I42.9 Cardiomyopathy, unspecified; J45.909 Unspecified asthma, uncomplicated; I07.1 Rheumatic tricuspid insufficiency; N18.9 Chronic kidney disease, unspecified; Z86.73 Personal history of transient ischemic attack (TIA), and cerebral infarction without residual deficits; Z20.822 Contact with and (suspected) exposure to COVID-19; E11.22 Type 2 diabetes mellitus with diabetic chronic kidney disease; Z91.14 Patient's other noncompliance with medication regimen; Z79.4 Long term (current) use of insulin
CPT/HCPCS: 0241U; 36415; 71045; 71045-26; 71275; 71275-26; 74177; 74177-26; 76705; 76705-26; 80053; 80074; 80305-QW; 80307; 81001; 82947; 83550; 83605; 83690; 83735; 83880; 84100; 84443; 84484; 85025; 85379; 85610; 86480; 86592; 86695; 86696; 87389; 87491; 87529; 87591; 93005; 93010; 93306; 96365; 96372; 96375; 99222; 99239; 99285; 99285-25; A9270-GY; J1815-GY; J1940; J2405; J3475; J3490; J7030; J7050; Q9967

== ENCOUNTER 2022-03-30 00:08 | Emergency (ER) | payer MEDICAID ==
[2022-03-30] MEDS ORDERED: Lidocaine/Epineph/Tetracaine 3 ML Syringe TOP ONE (01:26)
[2022-03-30] MEDS ORDERED: Lidocaine 1% PF 2 ML SDV INJECT ONE (01:26)
[2022-03-30] MEDS ORDERED: Lidocaine 5% Oint 35.44 GM Tube TOP STA (01:49)
== END 2022-03-30 02:58 | disposition home or self-care (01) ==
LOC: MW.ED 00:08
DX: K64.5 Perianal venous thrombosis (principal); I25.10 Atherosclerotic heart disease of native coronary artery without angina pectoris; E11.9 Type 2 diabetes mellitus without complications; Z86.73 Personal history of transient ischemic attack (TIA), and cerebral infarction without residual deficits; Z79.01 Long term (current) use of anticoagulants; Z79.82 Long term (current) use of aspirin; Z79.4 Long term (current) use of insulin
CPT/HCPCS: 46083; 99283; A9270; J3490

== ENCOUNTER 2022-03-30 11:18 | Emergency (ER) | payer MEDICAID | END 2022-03-30 14:11 | disposition home or self-care (01) | LOC: MW.ED 11:18 | DX: K64.4 Residual hemorrhoidal skin tags (principal); E11.9 Type 2 diabetes mellitus without complications; Z79.01 Long term (current) use of anticoagulants; Z79.82 Long term (current) use of aspirin; Z79.4 Long term (current) use of insulin; Z86.73 Personal history of transient ischemic attack (TIA), and cerebral infarction without residual deficits | CPT/HCPCS: 99282 ==

== ENCOUNTER 2022-04-05 18:39 | Inpatient (IN) | payer MEDICAID ==
[2022-04-05 21:02] LABS: CORONAVIRUS COVID-19 NAA NEGATIVE (NEGATIVE); INFLUENZA A NAA NEGATIVE (NEGATIVE); INFLUENZA B NAA NEGATIVE (NEGATIVE); RESPIRATORY SYNCYTIAL VIR NAA NEGATIVE (NEGATIVE)
[2022-04-05] MEDS ORDERED: 50% Dextrose in Water 50 ML Syringe IVPUSH ONE (21:31)
[2022-04-05 21:32] LABS: CARBON DIOXIDE,CO2 27.5 mmol/L (21.0-32.0); POTASSIUM,K 3.6 mmol/L (3.5-5.1)
[2022-04-05] MEDS ORDERED: Furosemide 40 MG/4 ML VIAL IVPUSH ONE (23:30)
[2022-04-06] MEDS ORDERED: 50% Dextrose in Water 50 ML Syringe IVPUSH PRN (00:53)
[2022-04-06] MEDS ORDERED: Glucagon,Human Recombinant 1 MG Vial IM PRN (00:53)
[2022-04-06] MEDS: Albuterol/Ipratropium 3.0-0.5 MG/3 ML Neb Soln NEB PRN ×2 (04:57→19:44)
[2022-04-06] MEDS ORDERED: Insulin Aspart 100 Units/ML 3 ML Pen SUBCUT SCH (05:30)
[2022-04-06] MEDS ORDERED: Ondansetron 4 MG/2 ML SDV IVPUSH PRN (06:51)
[2022-04-06] MEDS: Insulin Aspart 100 Units/ML 3 ML Pen SUBCUT SCH ×3 (08:08→18:44)
[2022-04-06] MEDS: Furosemide 40 MG/4 ML VIAL IVPUSH SCH ×2 (08:10→15:24)
[2022-04-06] MEDS: Apixaban 5 MG Tab PO SCH ×2 (09:35→20:56)
[2022-04-06] MEDS: Aspirin 81 MG Tab.EC PO SCH (09:35)
[2022-04-06 09:44] LABS: CARBON DIOXIDE,CO2 30.6 mmol/L (21.0-32.0); POTASSIUM,K 3.8 mmol/L (3.5-5.1)
[2022-04-06] MEDS: Hydrocortisone 2.5% Crm 30 GM Tube TOP PRN (10:53)
[2022-04-06] MEDS: SACUBITRIL PO SCH (22:33)
[2022-04-06] MEDS: VALSARTAN PO SCH (22:33)
[2022-04-07] MEDS: Insulin Aspart 100 Units/ML 3 ML Pen SUBCUT SCH ×3 (07:42→17:18)
[2022-04-07 08:10] LABS: CARBON DIOXIDE,CO2 29.4 mmol/L (21.0-32.0); POTASSIUM,K 4.1 mmol/L (3.5-5.1)
[2022-04-07] MEDS: Aspirin 81 MG Tab.EC PO SCH (08:42)
[2022-04-07] MEDS: Apixaban 5 MG Tab PO SCH ×2 (08:42→20:47)
[2022-04-07] MEDS: Furosemide 40 MG/4 ML VIAL IVPUSH SCH ×2 (08:46→14:47)
[2022-04-07] MEDS: SACUBITRIL PO SCH ×2 (09:01→20:47)
[2022-04-07] MEDS: VALSARTAN PO SCH ×2 (09:01→20:47)
[2022-04-07] MEDS: Albuterol/Ipratropium 3.0-0.5 MG/3 ML Neb Soln NEB PRN (14:23)
[2022-04-07] MEDS: Acetaminophen 325 MG Tab PO PRN (15:48)
[2022-04-08] MEDS: Acetaminophen 325 MG Tab PO PRN (04:31)
[2022-04-08] MEDS: Hydrocortisone 2.5% Crm 30 GM Tube TOP PRN (04:31)
[2022-04-08 07:33] LABS: POTASSIUM,K 3.9 mmol/L (3.5-5.1)
[2022-04-08] MEDS: Insulin Aspart 100 Units/ML 3 ML Pen SUBCUT SCH ×2 (08:09→12:07)
[2022-04-08] MEDS: Apixaban 5 MG Tab PO SCH (08:10)
[2022-04-08] MEDS: Furosemide 40 MG/4 ML VIAL IVPUSH SCH ×2 (08:10→13:47)
[2022-04-08] MEDS: Aspirin 81 MG Tab.EC PO SCH (08:10)
[2022-04-08] MEDS: VALSARTAN PO SCH (08:48)
[2022-04-08] MEDS: SACUBITRIL PO SCH (08:48)
[2022-04-08] MEDS ORDERED: Metoprolol Succinate 25 MG Tab.ER PO SCH (12:45)
== END 2022-04-08 15:10 | disposition home or self-care (01) | DRG 292 ==
LOC: MW.ED 18:39 → MW.MS 23:34 → OBSVTOIN 04-06 09:10 → MW.MS 04-06 18:18
PROVIDERS: ADMIT Internal Medicine; ATTEND Internal Medicine
DX: I50.23 Acute on chronic systolic (congestive) heart failure (principal); I42.9 Cardiomyopathy, unspecified; N17.9 Acute kidney failure, unspecified; J45.909 Unspecified asthma, uncomplicated; E11.649 Type 2 diabetes mellitus with hypoglycemia without coma; R74.01 Elevation of levels of liver transaminase levels; Z20.822 Contact with and (suspected) exposure to COVID-19; Z79.82 Long term (current) use of aspirin; Z79.4 Long term (current) use of insulin; Z86.73 Personal history of transient ischemic attack (TIA), and cerebral infarction without residual deficits; Z91.199 Patient's noncompliance with other medical treatment and regimen due to unspecified reason
CPT/HCPCS: 0241U; 36415; 71045; 71045-26; 76705; 76705-26; 80048; 80053; 81001; 82947; 83605; 83690; 83880; 85025; 85610; 93005; 93010; 94640; 96374; 96375; 96376; 99284; 99285-25; A9270-GY; G0378; J1815-GY; J1940; J3490; J7620-GY